=== PATIENT | female | born 1945 | race Caucasian/White ===

== ENCOUNTER 2016-09-25 09:36 | Observation (INO) | payer MEDICARE, BC ==
[2016-09-18 10:03] LABS: HEMATOCRIT 33.8 % (36.0-47.0); HEMOGLOBIN 11.5 g/dL (12.0-15.5); HGB HCT DIFFERENCE 0.7; MEAN CORPUSCULAR HEMOGLOBIN 28.2 pg (27.0-33.4); MEAN CORPUSCULAR HGB CONC 34.2 g/dL (32.0-36.0); MEAN CORPUSCULAR VOLUME 83 fl (80-97); RED BLOOD COUNT 4.09 10^6/uL (3.72-5.28); RED CELL DISTRIBUTION WIDTH 13.3 % (11.5-14.0); WHITE BLOOD COUNT 7.6 10^3/uL (4.0-10.5)
[2016-09-18 10:30] LABS: ANION GAP 12 (5-19); BLOOD UREA NITROGEN 16 mg/dL (7-20); CALCIUM 9.9 mg/dL (8.4-10.2); CARBON DIOXIDE 25 mmol/L (22-30); CHLORIDE 104 mmol/L (98-107); CREATININE RESULT 0.72 mg/dL (0.52-1.25); GLUCOSE 86 mg/dL (75-110); POTASSIUM 4.7 mmol/L (3.6-5.0); SODIUM 141.1 mmol/L (137-145)
[~2016-09-25 09:36] MED LIST: LACTATED RINGERS 1000 ML IV PRN; LIDOCAINE 0.5% INJ-PF (5 MG/ML) 50 ML SDV SUBCUT PRN; LIDOCAINE 1%/EPINEPHRINE INJ 20 ML VIAL ONE; METHYLENE BLUE INJ/PF 10 MG/1 ML SDV ONE; MICROFIBRILLAR COLLAGEN 1 GM PACK ONE
[2016-09-25] MEDS ORDERED: ONDANSETRON HCL INJ/PF 4 MG/2 ML SDV ONE (10:08)
[2016-09-25] MEDS ORDERED: SUCCINYLCHOLINE CHLORIDE INJ 200 MG/10 ML VIAL ONE (10:08)
[2016-09-25] MEDS ORDERED: LIDOCAINE 2% INJ-PF (20 MG/ML) 10 ML AMPUL ONE (10:08)
[2016-09-25] MEDS ORDERED: METOCLOPRAMIDE HCL INJ/PF 10 MG/2 ML SDV ONE (10:08)
[2016-09-25] MEDS ORDERED: GLYCOPYRROLATE INJ 0.4 MG/2 ML VIAL ONE (10:08)
[2016-09-25] MEDS ORDERED: DEXAMETHASONE SOD PHOSPHATE INJ 4 MG/1 ML VIAL ONE (10:08)
[2016-09-25] MEDS ORDERED: FENTANYL CITRATE INJ/PF 250 MCG/5 ML AMPULE ONE (12:24)
[2016-09-25] MEDS ORDERED: FENTANYL CITRATE INJ/PF 100 MCG/2 ML AMPUL ONE (12:25)
[2016-09-25] MEDS ORDERED: MIDAZOLAM 2 MG/2 ML INJ ONE (12:25)
[2016-09-25] MEDS ORDERED: PROPOFOL INJ 200 MG/20 ML VIAL IV ONE (12:25)
[2016-09-25] MEDS ORDERED: HYDROMORPHONE HCL INJ/PF 2 MG/ML AMPULE ONE (12:25)
[2016-09-25] MEDS ORDERED: DEXMEDETOMIDINE INJ 80 MCG/20 ML VIAL IV ONE (12:26)
[2016-09-25] MEDS ORDERED: ACETAMINOPHEN 100 ML IV ONE (12:26)
[2016-09-25] MEDS: CIPROFLOXACIN 400 MG/D5W RTU 400 MG/200 ML RTUPB IV PRN ×3 (13:00→23:16)
[2016-09-25] MEDS ORDERED: EPHEDRINE SULFATE INJ 50 MG/1 ML AMPULE ONE (14:23)
[2016-09-25] MEDS ORDERED: FENTANYL CITRATE INJ/PF 100 MCG/2 ML AMPUL IV PRN ×3 (15:48)
[2016-09-25] MEDS ORDERED: MEPERIDINE HCL/PF INJ 25 MG/1 ML DISP.SYRIN IV PRN (15:48)
[2016-09-25] MEDS ORDERED: OXYCODONE-ACETAMINOPHEN 5-325 MG TABLET PO PRN ×3 (15:48→16:53)
[2016-09-25] MEDS ORDERED: PROMETHAZINE HCL INJ 25 MG/1 ML VIAL IV PRN ×2 (15:48)
[2016-09-25] MEDS ORDERED: DIPHENHYDRAMINE HCL 50 MG/ML VIAL IV PRN (15:48)
[2016-09-25] MEDS ORDERED: MORPHINE SULFATE 10 MG/ML INJ IV PRN (15:48)
--- NOTE | 2016-09-25 16:49 | Operative Report ---
Operative Report DATE OF SURGERY: 09/25/16 PREOPERATIVE DIAGNOSIS: 1. Locally advanced right breast carcinoma status post right mastectomy, sentinel node biopsy POSTOPERATIVE DIAGNOSIS: Same OPERATION: 1. Focused ultrasound left neck. 2. Left subclavian [id number] catheter placement, dual-lumen with interpretation of intraoperative fluoroscopy. 3. Completion right axillary dissection with drain placement. 4. Left mastectomy with drain placement SURGEON: OTILIO SIDDIQUI INFORMATICIST: SOHAIL CALIXTO ANESTHESIA: GA TISSUE REMOVED OR ALTERED: 1. Right axillary contents, complete. 2. Left breast COMPLICATIONS: None ESTIMATED BLOOD LOSS: 50 mL INTRAOPERATIVE FINDINGS: See below PROCEDURE: The patient was seen in the preoperative holding area with a plan for right complete axillary dissection, left mastectomy, and left subclavian Infuse-a- Port placement were all discussed. The patient taken the operating room where she underwent general anesthesia. She was left in supine position, arms tucked to her side. The plan was to perform the Betbtt-o-Bdqs catheter in the left side first. Therefore the neck and chest wall bilaterally was prepped and draped sterile fashion. Surgical plan and surgical timeout were conducted. We approached the left subclavian area first. The area was scanned with the variable frequency linear transducer. Subclavian vein felt to be suitable for cannulation. Skin anesthetized 1% lidocaine with epinephrine. Using the Seldinger technique, the left subclavian vein was cannulated wire threaded into position. Fluoroscopy confirmed appropriate placement of the wire we then opened up the initial incision with knife blade, developed a subcutaneous pocket large enough to accommodate a dual-chamber port. The catheter was then trimmed to the appropriate length, attached to the port. Then the dilator and introducer sheath were threaded into the left subclavian vein over the guidewire. Wire and dilator removed leaving the catheter threaded into the strip away sheath. The sheath was removed and the catheter was found to be in good position with the tip in the superior vena cava. It was no kinking of the catheter. The wound was closed with 3-0 Vicryl suture, benzoin and Steri- Strips. We now turned our attention to the second part of the operation. Drapes removed , both arms abducted and the entire chest and axilla prepped and draped in sterile fashion. Repeated the timeout and reviewed the plan for the completion right axillary dissection. The patient previously undergone right mastectomy with sentinel node biopsy of the right axilla approximately 1 month ago. The existing mastectomy scar was reopened laterally and then extended approximate 6 cm towards the apex of the axilla. We got into a seroma and this was evacuated. There was no evidence of infection. There was evidence of scar tissue from the previous surgery making the dissection somewhat tedious and challenging. Nonetheless we were able to develop superior and inferior skin flaps. We then introduced Bookwalter retractor system continued our dissection. We performed a complete axillary dissection involving of level II lymph nodes behind the right pectoralis minor muscle. The level of dissection was taken from the superior aspect of the axillary vein, which was bifurcated, all the way down to the serratus musculature inferiorly. All axillary contents were swept from the lateral chest wall extending from level II lymph nodes all the way down to the floor of the axilla, then laterally to the border of the latissimus dorsi muscle. There was moderate amount of scar tissue in the lower axilla. The intercostal brachial nerve was sacrificed during the dissection. Note throughout the dissection the long thoracic nerve, and the thoracodorsal nerve, and the corresponding artery and vein were preserved throughout the dissection. This was a very thorough dissection with excellent visualization and exposure. Axillary contents were removed in a segmented fashion right axillary contents. The stasis was felt to be satisfactory. Placement inferior skin flap, wounds closed with running 2-0 and interrupted 2-0 Vicryl sutures. We now approached the third portion of the operation which was the left simple mastectomy. Dr. Puga of previously marked the skin markings for the elliptical excision. The incision was made with a 10 blade. Superior and inferior skin flaps were raised, and the right breast was removed from the sternal tissue down to the pectoralis fascia, up to the subclavicular area, sparing the exposure to the recently placed port, and down to the serratus musculature inferiorly. The breast was taken off in 1 mass and sent to pathology as left. It was not marked. A large drain was placed in the inferior skin flap, wound closed again with multiple interrupted 2-0 running and interrupted Vicryl sutures. Sponge and needle counts are correct. All wounds closed with Dermabond glue, and Steri-Strips applied as needed. Drains were secured to the skin with 2-0 silk suture. Patient on procedure well, extubated and taken recovery in stable condition. The physician web press operator assistant, Ms. Calixto, provided assistance during this case by: Assisting with port insertion, retracting tissue, instillation of local anesthesia and closure of skin incisions.
[2016-09-25] MEDS ORDERED: ONDANSETRON HCL INJ/PF 4 MG/2 ML SDV IV PRN (16:53)
[2016-09-26] MEDS ORDERED: BISMUTH SUBSALICYLATE 262 MG TAB.CHEW PO PRN (08:31)
[2016-09-26] MEDS ORDERED: LANSOPRAZOLE 30 MG TAB.RAP.DR PO ONE ×2 (08:45)
[2016-09-26] MEDS ORDERED: LANSOPRAZOLE 30 MG TAB.RAP.DR PO SCH (11:00)
[2016-09-26 11:44] VITALS: BP 133/60
--- NOTE | 2016-09-26 12:28 | DISCHARGE SUMMARY E ---
Discharge Summary NAME: KRYSTAL TREJO : 1945 AGE: 71Y ADMITTED: 09/25/2016 DISCHARGED: 09/26/2016 SUMMARY OF HOSPITALIZATION: The patient is a 71-year-old white female with a known history of right breast carcinoma, status post right mastectomy, sentinel node biopsy. She has regionally advanced disease with 6/7 sentinel lymph nodes positive for metastatic disease. She is now brought to [facility] for completion of right axillary dissection, Infusaport placement, and left mastectomy. The patient was brought to ambulatory surgery, and underwent right completion axillary dissection, drain placement on the right side, left subclavian Infusaport placement, and left simple mastectomy with drain. Postoperatively the patient did well, had no complications. She was discharged home on the first postoperative day. FINAL DIAGNOSIS: Locally advanced right breast carcinoma, status post completion of right completion axillary dissection, left subclavian port placement, and left simple mastectomy. DISPOSITION: The patient will be discharged home in the care of family. Followup with Dr. Puga in approximately 1 week. Resume preoperative medications and activity. Prescription for Percocet provided. DICTATING PHYSICIAN: OTILIO PUGA M.D. [id number] PHY#: [id number] ID: [id number] JOB#: [id number] ACCT: [id number] cc:OTILIO PUGA M.D. >
== END 2016-09-26 13:00 | disposition home or self-care (01) ==
LOC: OROUT 09:36 → 4W 16:51
PROVIDERS: ADMIT Surgery; ATTEND Surgery
PROC: 07T50ZZ Resection of Right Axillary Lymphatic, Open Approach (ICD-10-PCS; 2016-09-25)
PROC: [UNRECOGNIZED PROCEDURE] (2016-09-25)
PROC: 05H633Z Insertion of Infusion Device into Left Subclavian Vein, Percutaneous Approach (ICD-10-PCS; principal; 2016-09-25 11:30)
PROC: 0HTU0ZZ Resection of Left Breast, Open Approach (ICD-10-PCS; 2016-09-25 11:30)
DX: C50.911 Malignant neoplasm of unspecified site of right female breast (principal); Z17.0 Estrogen receptor positive status [ER+]; N60.12 Diffuse cystic mastopathy of left breast; D24.2 Benign neoplasm of left breast; N60.42 Mammary duct ectasia of left breast; R92.0 Mammographic microcalcification found on diagnostic imaging of breast; L76.34 Postprocedural seroma of skin and subcutaneous tissue following other procedure; Y83.8 Other surgical procedures as the cause of abnormal reaction of the patient, or of later complication, without mention of misadventure at the time of the procedure; Y82.8 Other medical devices associated with adverse incidents; R35.0 Frequency of micturition; I10 Essential (primary) hypertension; F17.210 Nicotine dependence, cigarettes, uncomplicated; K21.9 Gastro-esophageal reflux disease without esophagitis; Z80.3 Family history of malignant neoplasm of breast; Z79.899 Other long term (current) drug therapy; Z88.0 Allergy status to penicillin
CPT/HCPCS: 36415; 85027; 80048; 88307 ×2; 71010; 77001; 36561; 19303; 38525; 10140; G0378; C1788; C1752; J2250; A9270; J1100; J3490 ×4; J3010; J2765; J1170; J0330; J2405; J2704; J0744; J1642; J0131; 404; Q9968

== ENCOUNTER → 2016-10-18 | Outpatient (CLI) | payer MEDICARE, BC | LOC: RAD 10:13 | PROVIDERS: ATTEND Internal Medicine | DX: Z08 Encounter for follow-up examination after completed treatment for malignant neoplasm (principal); C50.011 Malignant neoplasm of nipple and areola, right female breast; Z51.11 Encounter for antineoplastic chemotherapy | CPT/HCPCS: 78473; A9560; Q9969 ==

== ENCOUNTER → 2017-06-26 | Outpatient (CLI) | payer MEDICARE, BC ==
--- NOTE | 2017-06-26 10:45 | WOMENS IMAGING REPORT ---
EXAM DESCRIPTION: BONE DENSITY HIP/SPINE COMPLETED DATE/TIME: 06/26/2017 10:37 am REASON FOR STUDY: OSTEOPOROSIS M81.0 AGE-RELATED OSTEOPOROSIS W/O CURRENT PATHOLOGICAL FRAC COMPARISON: None. TECHNIQUE: Dual-Energy X-ray Absorptiometry (DEXA) of the AP Spine and Hip. LIMITATIONS: None. FINDINGS: LUMBAR SPINE: The bone mineral density (BMD) measured from L1-L4 in the AP projection correlates with a T-score of -2.0, which is osteopenia as defined by the World Health Organization. HIP: The bone mineral density (BMD) measured in the left hip correlates with a T-score of -1.5 in the femo ral neck, which is osteopenia as defined by the World Health Organization. IMPRESSION: 1. LUMBAR SPINE: OSTEOPENIA. 2. HIP: OSTEOPENIA. COMMENT: The 10 year risk of major osteoporotic fracture is 9.6%. The 10 year risk of hip fracture is 1.3%. The World Health Organization defines low BMD as follows: T-score: Normal: Greater than -1.0 Osteopenia: Between -1.0 and -2.5 Osteoporosis: Less than -2.5 without fractures Established osteoporosis: Less than -2.5 with fractures In general, you may wish to consider: Diagnosis Treatment Follow-up DEXA Normal BMD Prevention 2-3 years Osteopenia Prevention/Therapy 1-2 years Osteoporosis Therapy Yearly TECHNICAL DOCUMENTATION: JOB ID: [id number]- All Rights Reserved
== END ==
LOC: WI 10:17
PROVIDERS: ATTEND Internal Medicine
DX: M81.0 Age-related osteoporosis without current pathological fracture (principal)
CPT/HCPCS: 77080

== ENCOUNTER 2017-09-15 14:13 | Inpatient (IN) | payer MEDICARE, BC ==
[2017-09-15 15:32] LABS: HEMATOCRIT 27.5 % (36.0-47.0); HEMOGLOBIN 8.9 g/dL (12.0-15.5); MEAN CORPUSCULAR HEMOGLOBIN 25.2 pg (27.0-33.4); MEAN CORPUSCULAR HGB CONC 32.4 g/dL (32.0-36.0); MEAN CORPUSCULAR VOLUME 78 fl (80-97); PLATELET COUNT 304 10^3/uL (150-450); RED BLOOD COUNT 3.54 10^6/uL (3.72-5.28); RED CELL DISTRIBUTION WIDTH 17.7 % (11.5-14.0); WHITE BLOOD COUNT 12.1 10^3/uL (4.0-10.5)
[2017-09-15 15:49] LABS: ALANINE AMINOTRANSFERASE 35 U/L (9-52); ALBUMIN 3.5 g/dL (3.5-5.0); ALKALINE PHOSPHATASE 91 U/L (38-126); ANION GAP 11 (5-19); ASPARTATE AMINO TRANSFERASE 27 U/L (14-36); BILIRUBIN,DIRECT 0.1 mg/dL (0.0-0.4); BILIRUBIN,TOTAL 0.1 mg/dL (0.2-1.3); BLOOD UREA NITROGEN 9 mg/dL (7-20); CALCIUM 9.2 mg/dL (8.4-10.2); CARBON DIOXIDE 25 mmol/L (22-30); CHLORIDE 102 mmol/L (98-107); GLUCOSE 77 mg/dL (75-110); SODIUM 138.1 mmol/L (137-145); TOTAL PROTEIN 6.3 g/dL (6.3-8.2)
[2017-09-15] MEDS: ACETAMINOPHEN 325 MG TABLET PO PRN (16:42)
[2017-09-15] MEDS: CIPROFLOXACIN 400 MG/D5W RTU 400 MG/200 ML RTUPB IV SCH (16:43)
[2017-09-15] MEDS ORDERED: LIDOCAINE 0.5% INJ-PF (5 MG/ML) 50 ML SDV ONE (18:50)
[2017-09-15] MEDS ORDERED: BUPIVACAINE HCL 0.25 % INJ/PF (2.5 MG/1 ML) 30 ML VIAL ONE (18:50)
[2017-09-15] MEDS ORDERED: FENTANYL CITRATE INJ/PF 100 MCG/2 ML AMPUL ONE (19:01)
[2017-09-15] MEDS ORDERED: MIDAZOLAM 2 MG/2 ML INJ ONE (19:01)
[2017-09-15] MEDS ORDERED: PROPOFOL INJ 200 MG/20 ML VIAL IV ONE (19:01)
[2017-09-15] MEDS ORDERED: ACETAMINOPHEN 100 ML IV ONE (19:01)
--- NOTE | 2017-09-15 19:38 | OPERATIVE REPORT E ---
Operative Report NAME: KRYSTAL TREJO : 1945 AGE: 72Y DATE OF SURGERY: 09/15/2017 ROOM: 527 PREOPERATIVE DIAGNOSIS: Status post mastectomy with right chest wall infection. POSTOPERATIVE DIAGNOSIS: Status post mastectomy with right chest wall infection with residual abscess, right chest wall. OPERATIONS: Focused ultrasound of the right chest wall. SURGEON: OTILIO OCONNOR M.D. ANESTHESIA: None. DRAINS: None. TISSUE REMOVED: None. COMPLICATIONS: None. SUMMARY OF PROCEDURE: The patient was placed in the supine position on the 5th floor of [facility]. The right chest wall exposed. Mastectomy scar appreciated. Over the lateral aspect of the mastectomy scar was an area of discoloration at the site of recent drainage. The superior skin flap on the lateral aspect of the mastectomy scar was erythematous and tender and swollen. There was limited range of motion of patient's right upper extremity. Accuzyme gel was placed on the chest wall and the chest wall scanned with a variable frequency linear transducer. Findings were significant for a mixed hypoechoic area just under the skin at the point of maximum swelling and tenderness consistent with undrained fluid which tracked medially several centimeters. IMPRESSION: Undrained pus, right chest wall, status post mastectomy 1 year ago. RECOMMENDATIONS: 1. The patient should undergo proper debridement and drainage, with packing or drain placement, preferably in the operating room under controlled conditions for optimal drainage. 2. I discussed this with the patient as well as an explanation of the risks, benefits, and alternatives. I believe she understands and agrees to proceed. DICTATING PHYSICIAN: OTILIO OCONNOR M.D. [id number] PHY#: [id number] ID: [id number] JOB#: [id number] ACCT: [id number] cc:OTILIO OCONNOR M.D. >
[2017-09-15] MEDS ORDERED: ONDANSETRON HCL INJ/PF 4 MG/2 ML SDV IV PRN (19:40)
[2017-09-15] MEDS ORDERED: OXYCODONE-ACETAMINOPHEN 5-325 MG TABLET PO PRN (19:40)
[2017-09-15] MEDS ORDERED: MORPHINE SULFATE 10 MG/ML INJ IV PRN (19:40)
[2017-09-15] MEDS ORDERED: PROMETHAZINE HCL INJ 25 MG/1 ML VIAL IV PRN (19:44)
[2017-09-15] MEDS ORDERED: FENTANYL CITRATE INJ/PF 100 MCG/2 ML AMPUL IV PRN ×3 (19:44)
[2017-09-15] MEDS ORDERED: DIPHENHYDRAMINE HCL 50 MG/ML VIAL IV PRN (19:44)
[2017-09-15] MEDS ORDERED: MEPERIDINE HCL/PF INJ 25 MG/1 ML DISP.SYRIN IV PRN (19:44)
--- NOTE | 2017-09-15 19:45 | Operative Report ---
Operative Report DATE OF SURGERY: 09/15/17 PREOPERATIVE DIAGNOSIS: 1. History of right breast carcinoma, status post right mastectomy, sentinel node biopsy, radiation and adjuvant chemotherapy. 2. 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 Surgical plan surgical timeout conducted Skin was anesthetized with the 1% lidocaine at the site of recent drainage over the lateral aspect of the mastectomy scar. An incision was made over the necrotic area of skin, and this area open for a distance of approximately 4 cm. We evacuated a moderate amount of purulent discharge which was non-foul- smelling. Wound culture sent for Gram stain and sensitivity using my index finger, broke up loculations above and below the lateral aspect of the pectoralis major muscle. The infection appeared to be chronic, likely secondary to postoperative seroma, forestalled by radiation therapy. All loculations were broken up underneath the superior skin flap extending approximately 6-7 cm in all directions medially and laterally. There was no significant extension inferiorly. Wound irrigated with saline, trotter of cavity irrigated and some viable fibrinous tissue debrided with a knife and pickups. Total grams of tissue were disposed of. Wound irrigated again and packed with a half of Curlex packing. Hemostasis was excellent. Patient tolerated procedure well. She was taken to recovery room.
[2017-09-16] MEDS: ACETAMINOPHEN 325 MG TABLET PO PRN (00:31)
[2017-09-16] MEDS: NORMAL SALINE 1000 ML 1,000 ML IV PRN ×4 (00:38→23:36)
[2017-09-16] MEDS: CIPROFLOXACIN 400 MG/D5W RTU 400 MG/200 ML RTUPB IV SCH ×2 (05:25→17:34)
[2017-09-16] MEDS ORDERED: DENOSUMAB 60 MG SQ SCH (06:15)
[2017-09-16] MEDS: LANSOPRAZOLE 30 MG TAB.RAP.DR PO SCH (06:41)
[2017-09-16] MEDS: CHOLECALCIFEROL (D3) 400 UNIT TABLET PO SCH (09:31)
[2017-09-16] MEDS: CALCIUM CARBONATE 500 MG TABLET PO SCH (09:31)
[2017-09-16] MEDS: ESCITALOPRAM OXALATE 10 MG TABLET PO SCH (09:31)
[2017-09-16] MEDS: MULTIVITAMIN TABLET PO SCH (09:31)
[2017-09-16] MEDS ORDERED: LANSOPRAZOLE 30 MG TAB.RAP.DR PO SCH (10:00)
[2017-09-16] MEDS ORDERED: (PENDING PHARMACY ID) (Calcium Carbonate/Vitamin D3 [Calcium 600 + Vit D 400 Tablet] 1 TAB PO SCH (10:00)
[2017-09-16] MEDS ORDERED: AMLODIPINE BESYLATE 2.5 MG TABLET PO ONE (16:00)
--- NOTE | 2017-09-16 16:16 | PDOC PROGRESS REPORT ---
Subjective Progress Note for:: 09/16/17 Subjective:: Pains right chest operative site Reason For Visit: RIGHT CHEST WALL INFECTION Physical Exam Vital Signs: Temp Pulse Resp BP Pulse Ox 97.9 F 78 16 141/88 H 100 09/16/17 14:41 09/16/17 14:41 09/16/17 14:41 09/16/17 14:41 09/16/17 14:41 Intake & Output 09/15/17 09/16/17 09/17/17 06:59 06:59 06:59 Intake Total 550 Output Total 15 Balance 535 Weight 76.204 kg 79 kg Exam: Initial packing removed and replaced with a roll of quarter inch iodoform gauze into the cavity about 7 cm superiorly, medially, and laterally. No drainge noted. However, since this is a chronic wound, may benefit from a wound VAC. Big question is the deep tunnelling. This may need to be unroof. Will D/W pt and about placing a wound VAC in the OR tomorrow with unroofing. Results Laboratory Results: 09/15/17 15:19 09/15/17 15:19 Assessment & Plan - Diagnosis (1) Abscess rt mastectomy site Is this a current diagnosis for this admission?: Yes - Time Time Spent with patient: 15-24 minutes - Inpatient Certification Medical Necessity: Need for Pain Control, Need for IV Antibiotics, Need for Surgery, Risk of Complication if Not Cared For in Hospital - Plan Summary Plan Summary: Wound repacked with iodoform gauze. May need wound VAC but needs unroofing of abscess cavity. Will D/W pt and Continue IV antibiotic tx
[2017-09-16] MEDS: LETROZOLE 2.5 MG TABLET PO SCH (17:35)
[2017-09-16] MEDS ORDERED: DEXTROSE 50%-WATER 25 GM/50 ML DISP.SYRIN IV PRN ×2 (18:46)
[2017-09-16] MEDS ORDERED: DEXTROSE 40% GEL 15 GM TUBE PO PRN ×2 (18:46)
[2017-09-16] MEDS ORDERED: GLUCAGON,HUMAN RECOMB 1 MG INJ SUBCUT PRN (18:46)
[2017-09-16] MEDS: ATORVASTATIN CALCIUM 10 MG TABLET PO SCH (21:22)
[2017-09-17] MEDS: CIPROFLOXACIN 400 MG/D5W RTU 400 MG/200 ML RTUPB IV SCH ×2 (05:39→18:13)
[2017-09-17] MEDS: LANSOPRAZOLE 30 MG TAB.RAP.DR PO SCH (05:40)
[2017-09-17] MEDS: NORMAL SALINE 1000 ML 1,000 ML IV PRN ×2 (07:01→23:35)
[2017-09-17] MEDS: KETOROLAC TROMETHAMINE INJ/PF 30 MG/1 ML SDV IV PRN ×2 (08:27→18:13)
[2017-09-17] MEDS: AMLODIPINE BESYLATE 2.5 MG TABLET PO SCH (08:28)
[2017-09-17] MEDS ORDERED: LIDOCAINE 2% INJ-PF (20 MG/ML) 10 ML AMPUL ONE (11:37)
[2017-09-17] MEDS ORDERED: LIDOCAINE 0.5% INJ-PF (5 MG/ML) 50 ML SDV ONE (11:43)
[2017-09-17] MEDS ORDERED: MIDAZOLAM 2 MG/2 ML INJ ONE ×2 (11:58→12:01)
[2017-09-17] MEDS ORDERED: FENTANYL CITRATE INJ/PF 100 MCG/2 ML AMPUL ONE ×2 (11:58)
[2017-09-17] MEDS ORDERED: PROPOFOL INJ 200 MG/20 ML VIAL IV ONE ×2 (11:59→12:01)
[2017-09-17] MEDS ORDERED: PROMETHAZINE HCL INJ 25 MG/1 ML VIAL IV PRN ×2 (12:39)
[2017-09-17] MEDS ORDERED: OXYCODONE-ACETAMINOPHEN 5-325 MG TABLET PO PRN ×3 (12:39→12:51)
[2017-09-17] MEDS ORDERED: FENTANYL CITRATE INJ/PF 100 MCG/2 ML AMPUL IV PRN ×3 (12:39)
[2017-09-17] MEDS ORDERED: DIPHENHYDRAMINE HCL 50 MG/ML VIAL IV PRN (12:39)
[2017-09-17] MEDS ORDERED: MORPHINE SULFATE 10 MG/ML INJ IV PRN (12:39)
--- NOTE | 2017-09-17 13:28 | OPERATIVE REPORT E ---
Operative Report NAME: KRYSTAL TREJO : 1945 AGE: 72Y DATE OF SURGERY: 09/15/2017 ROOM: 207 PREOPERATIVE DIAGNOSIS: Abscess cavity right anterior chest wall post mastectomy. POSTOPERATIVE DIAGNOSIS: Abscess cavity right anterior chest wall post mastectomy. PROCEDURE: Incision and drainage of abscess cavity about 9 cm long. SURGEON: NICOLÁS MIRZA M.D. ANESTHESIA: Local MAC. INDICATION: This is a 72-year-old female who developed an abscess post mastectomy. This was initially drained by Dr. Puga 2 days ago. However, patient continued to have a large abscess cavity. Decision was made after discussion to patient and her as far as optimizing the healing process with the use of a wound VAC and requiring incising or unroofing the cavity. They both agreed. DESCRIPTION OF PROCEDURE: After adequate IV sedation, patient was placed in supine position with the right arm extended. The right chest was then prepped and draped in the usual sterile fashion. Appropriate timeout was called. Next, local anesthesia infiltrated along the tunnel from the initial I and D site towards the medial aspect at about 75 degree angle. A 9 cm long incision was made which opened the cavity completely. The skin bleeders were coagulated with cautery. It was then completely divided through the subcu with the use of cautery. Following this, the cavity was subsequently pulse lavaged with at least 2.5 L of saline. No evidence of abscess or discharge was noted. After adequate hemostasis noted and after the lavage, a small foam for the wound VAC was placed into the wound. A transparent adhesive dressing placed over the wound creating a good seal. Next, a small opening over the mid part of the foam was done with scissors and suction connected to the opening in the foam. The suction subsequently connected to the wound VAC set at -125 mmHg pressure. The suctioned foam into the cavity nicely. The inferior part of the wound is somewhat just above the foam because the defect was quite deep up to a distance about 4 cm. The defect roughly measured about 10 cm x 8 cm wide x 4 cm deep. Patient tolerated the procedure well. Patient brought to the recovery room in satisfactory condition. Needle, instrument, and sponge count are all correct, and estimated blood loss about 5 mL. DICTATING PHYSICIAN: NICOLÁS MIRZA M.D. [id number] PHY#: [id number] ID: [id number] JOB#: [id number] ACCT: [id number] cc:NICOLÁS MIRZA M.D. > MEL
--- NOTE | 2017-09-17 13:34 | EKG REPORT ---
SEVERITY:- ABNORMAL ECG - SINUS RHYTHM FIRST DEGREE AV BLOCK : Confirmed by: Krish Rodriguez MD 17-Sep-2017 13:33:58
[2017-09-17] MEDS: CHOLECALCIFEROL (D3) 400 UNIT TABLET PO SCH (14:30)
[2017-09-17] MEDS: MULTIVITAMIN TABLET PO SCH (14:30)
[2017-09-17] MEDS: CALCIUM CARBONATE 500 MG TABLET PO SCH (14:31)
[2017-09-17] MEDS: ESCITALOPRAM OXALATE 10 MG TABLET PO SCH (14:31)
[2017-09-17] MEDS: LETROZOLE 2.5 MG TABLET PO SCH (18:12)
[2017-09-17] MEDS: ATORVASTATIN CALCIUM 10 MG TABLET PO SCH (22:43)
[2017-09-18] MEDS: KETOROLAC TROMETHAMINE INJ/PF 30 MG/1 ML SDV IV PRN ×3 (00:02→13:29)
[2017-09-18] MEDS: NORMAL SALINE 1000 ML 1,000 ML IV PRN (06:21)
[2017-09-18] MEDS: LANSOPRAZOLE 30 MG TAB.RAP.DR PO SCH (06:21)
[2017-09-18] MEDS: CIPROFLOXACIN 400 MG/D5W RTU 400 MG/200 ML RTUPB IV SCH (06:21)
[2017-09-18] MEDS: CALCIUM CARBONATE 500 MG TABLET PO SCH (09:24)
[2017-09-18] MEDS: ESCITALOPRAM OXALATE 10 MG TABLET PO SCH (09:24)
[2017-09-18] MEDS: CHOLECALCIFEROL (D3) 400 UNIT TABLET PO SCH (09:29)
[2017-09-18] MEDS: AMLODIPINE BESYLATE 2.5 MG TABLET PO SCH (09:31)
--- NOTE | 2017-09-18 10:09 | PDOC PROGRESS REPORT ---
Subjective Progress Note for:: 09/18/17 Subjective:: Feels well. Minimal pain at wound. Reason For Visit: CUTANEOUS ABSCESS OF CHEST WALL Physical Exam Vital Signs: Temp Pulse Resp BP Pulse Ox 98.5 F 81 16 135/68 H 93 09/18/17 08:03 09/18/17 08:03 09/18/17 08:03 09/18/17 08:03 09/18/17 08:03 Intake & Output 09/17/17 09/18/17 09/19/17 06:59 06:59 06:59 Intake Total 3450 5060 Output Total 3060 Balance 3450 2000 Weight 79.6 kg 82.6 kg General appearance: PRESENT: no acute distress, cooperative Respiratory exam: PRESENT: clear to auscultation hayde, other - Wound with wound VAC in place. Minimal surrounding erythema. Cardiovascular exam: PRESENT: RRR Results Laboratory Results: 09/15/17 15:19 09/15/17 15:19 09/15/17 19:23 Chest - Right Side Gram Stain - Final 09/15/17 19:23 Chest - Right Side Wound Culture - Final Staphylococcus Aureus No Anaerobic Organisms 09/15/17 15:30 Chest - Blister Gram Stain - Final 09/15/17 15:30 Chest - Blister Wound Culture - Final Staphylococcus Aureus Skin Ilana Assessment & Plan - Diagnosis (1) Abscess rt mastectomy site Is this a current diagnosis for this admission?: Yes Plan: Status post debridement and wound VAC placement. Doing well. Will plan to discharge patient home with wound VAC with postoperative care at the wound care clinic.
[2017-09-18] MEDS: MULTIVITAMIN TABLET PO SCH (11:27)
[2017-09-18 14:50] VITALS: BP 124/64
[2017-09-18] MEDS: LETROZOLE 2.5 MG TABLET PO SCH (17:25)
[2017-09-18] MEDS ORDERED: CIPROFLOXACIN HCL 500 MG TABLET PO SCH (18:00)
--- NOTE | 2017-09-18 19:49 | DISCHARGE SUMMARY E ---
Discharge Summary NAME: KRYSTAL TREJO : 1945 AGE: 72Y ADMITTED: 09/17/2017 DISCHARGED: 09/18/2017 FINAL DIAGNOSIS: Right-sided mastectomy site abscess. PROCEDURES PERFORMED DURING HOSPITALIZATION: 1. Incision and debridement of right-sided mastectomy site abscess performed by Dr. Puga on 09/15/2017. 2. Incision and debridement of right-sided mastectomy site abscess performed by Dr. Correa on 09/17/2017. HOSPITAL COURSE: The patient underwent the above-mentioned procedures. The last procedure yielded excellent drainage and debridement of the mastectomy site abscess. The patient was placed on a wound VAC which she was tolerating well. Cultures grew out Staph aureus that was pansensitive. Wound VAC was arranged for home. The patient has now been discharged to home in good condition. She will follow up at the [facility] next week. She was set up for home health with wound VAC care. She may resume all of her home medications. Additional medication is Levaquin 500 mg p.o. daily for 7 days (patient is penicillin allergic). She may resume her regular diet at home. She is encouraged to stay active at home. DICTATING PHYSICIAN: AZAR POMPA M.D. [id number] PHY#: [id number] ID: [id number] JOB#: [id number] ACCT: [id number] cc:OTILIO PUGA M.D., CHRISTOPHER M.D. > MTDD
== END 2017-09-18 19:45 | disposition home health service (06) | DRG 908 ==
LOC: 5 14:13 → INTOOBSV 14:13 → 2N 09-16 05:54 → OBSVTOIN 09-17 15:30
PROVIDERS: ADMIT Surgery; ATTEND Surgery
PROC: BH4BZZZ Ultrasonography of Chest Wall (ICD-10-PCS; 2017-09-15)
PROC: 0J960ZZ Drainage of Chest Subcutaneous Tissue and Fascia, Open Approach (ICD-10-PCS; principal; 2017-09-15 19:00)
PROC: 0W980ZZ Drainage of Chest Wall, Open Approach (ICD-10-PCS; 2017-09-17)
PROC: 2W14X6Z Compression of Chest Wall using Pressure Dressing (ICD-10-PCS; 2017-09-17)
DX: L76.34 Postprocedural seroma of skin and subcutaneous tissue following other procedure (principal); L03.313 Cellulitis of chest wall; C50.919 Malignant neoplasm of unspecified site of unspecified female breast; I10 Essential (primary) hypertension; Y83.4 Other reconstructive surgery as the cause of abnormal reaction of the patient, or of later complication, without mention of misadventure at the time of the procedure; Z90.11 Acquired absence of right breast and nipple
CPT/HCPCS: 36415; 400; 700; 80053; 85027; 87070; 87075; 87077; 87186; 87205; 93005; 93010; A6266; J0131; J0744; J1885; J2250; J2270; J2405; J2704; J3010; J3490; J7030

== ENCOUNTER → 2017-09-30 | Outpatient (CLI) | payer MEDICARE, BC ==
--- NOTE | 2017-09-30 17:18 | RADIOLOGY REPORT (SQ) ---
EXAM DESCRIPTION: CHEST PA/LAT COMPLETED DATE/TIME: 09/30/2017 5:09 pm REASON FOR STUDY: PNEUMOTHORAX, UNSPECIFIED COMPARISON: 09/25/2016. EXAM PARAMETERS: NUMBER OF VIEWS: two views TECHNIQUE: Digital Frontal and Lateral radiographic views of the chest acquired. RADIATION DOSE: NA LIMITATIONS: none FINDINGS: LUNGS AND PLEURA: Vague density in the right lung apex. Lungs otherwise clear. No pleura l effusion. No pneumothorax. MEDIASTINUM AND HILAR STRUCTURES: No masses or contour abnormalities. HEART AND VASCULAR STRUCTURES: Heart normal size. No evidence for failure. BONES: No acute findings. HARDWARE: Vascular access port. Hardware in the left humerus. Surgical clips in soft tissues. OTHER: Large hiatal hernia. IMPRESSION: NO PNEUMOTHORAX. VAGUE DENSITY IN THE RIGHT LUNG APEX. THIS MAY REPRESENT EARLY INFILT RATE, FOCAL SCAR, OR UNDERLYING MASS. RECOMMEND FOLLOW-UP WITH CHEST CT. TECHNICAL DOCUMENTATION: JOB ID: [id number] [employer]- All Rights Reserved
== END ==
LOC: RAD 16:48
PROVIDERS: ATTEND Plastic Surgery
DX: J93.9 Pneumothorax, unspecified (principal)
CPT/HCPCS: 71046

== ENCOUNTER 2017-10-08 13:51 | Outpatient (CLI) | payer MEDICARE, BC ==
[~2017-10-08 13:51] MED LIST changes: +FERRIC CARBOXYMALTOSE 750 MG in NORMAL SALINE 250 ML IV PRN; -LACTATED RINGERS 1000 ML IV PRN; -LIDOCAINE 0.5% INJ-PF (5 MG/ML) 50 ML SDV SUBCUT PRN; -LIDOCAINE 1%/EPINEPHRINE INJ 20 ML VIAL ONE; -METHYLENE BLUE INJ/PF 10 MG/1 ML SDV ONE; -MICROFIBRILLAR COLLAGEN 1 GM PACK ONE; +NORMAL SALINE 250 ML IV PRN
[2017-10-08 14:20] VITALS: BP 114/59
== END 2017-10-08 15:06 | disposition home or self-care (01) ==
LOC: II 13:51 → 5TH 14:13 → II 15:06
PROVIDERS: ATTEND Internal Medicine
PROC: 3E043GC Introduction of Other Therapeutic Substance into Central Vein, Percutaneous Approach (ICD-10-PCS; principal; 2017-10-08)
DX: D50.9 Iron deficiency anemia, unspecified (principal); K90.9 Intestinal malabsorption, unspecified
CPT/HCPCS: 96367; J7050; J1439; 96365

== ENCOUNTER → 2017-10-09 | Outpatient (CLI) | payer MEDICARE, BC ==
--- NOTE | 2017-10-09 09:38 | RADIOLOGY REPORT (SQ) ---
EXAM DESCRIPTION: CT CHEST WITH; CT ABD/PELVIS WITH IV ONLY COMPLETED DATE/TIME: 10/09/2017 8:26 am; 10/09/2017 8:29 am REASON FOR STUDY: BREAST CA C50.011 MALIGNANT NEOPLASM OF NIPPLE AND AREOLA, RIGHT FEMAL Status post right mastectomy 08/27/2016. Abscess wound VAC clean out 09/17/2016. Status post chemoth erapy and radiation therapy. CONTRAST TYPE AND DOSE: contrast/concentration: Isovue 370.00 mg/ml; Total Contrast Delivered: 83.0 ml; Total Saline Delivered: 68.0 ml RENAL FUNCTION: NA. COMPARISON: 09/04/2016. TECHNIQUE: CT scan of the chest performed using helical scanning technique with dynamic intravenous contrast injection. Images reviewed with lung, soft tissue and bone windows. Reconstructed coronal a nd sagittal MPR images reviewed. All images stored on PACS. All CT scanners at this facility use dose modulation, iterative reconstruction, and/or weight based d osing when appropriate to reduce radiation dose to as low as reasonably achievable (ALARA). [facility]: Dose Right [facility]: CareDose [facility]: Dose Right [facility]: Teradose 4D [facility]: MissingLINK RADIATION DOSE: CT Rad equipment meets quality standard of care and radiation dose reduction techniq ues were employed. CTDIvol: 8.5 - 14.0 mGy. DLP: 1764 mGy-cm.. LIMITATIONS: None. FINDINGS: LUNGS AND PLEURA: Interval development of consolidation right upper lobe compatible with p neumonia. Chronic scarring right middle lobe. Changes of centrilobular emphysema. HILAR AND MEDIASTINAL STRUCTURES: No mediastinal or hilar adenopathy. HEART AND VASCULAR STRUCTURES: No aneurysm or dissection. No central pulmonary emboli. No pericardi al effusion. HARDWARE: None in the chest. UPPER ABDOMEN: Large hiatal hernia. THYROID AND OTHER SOFT TISSUES: No masses. No adenopathy. BONES: Total left humeral prosthesis in place. OTHER: Postsurgical defect right chest wall with open wound. There is a fluid collection extending p osteriorly to the axilla with surrounding inflammatory change. Surgical clips are noted in this reg ion from right axillary node dissection. The findings could represent postoperative hematoma or sero ma. It measures 6.5 cm in length x 2 cm in transverse diameter x3.5 cm in AP diameter. IMPRESSION: There is evidence of postsurgical change of the right chest wall from prior mastectomy. Open 1 noted. Posterior to this region there is evidence of a postsurgical seroma extending into th e axilla and region of axillary node dissection.. COMPARISON: None. RADIATION DOSE: CT Rad equipment meets quality standard of care and radiation dose reduction techniq ues were employed. CTDIvol: 8.5 - 14.0 mGy. DLP: 1764 mGy-cm.mGy. TECHNIQUE: CT scan of the abdomen and pelvis performed with intravenous and oral contrast using barbra francisco scanning technique with dynamic intravenous contrast injection. Images reviewed with lung, soft tissue and bone windows. Reconstructed coronal and sagittal MPR images reviewed. Delayed images for evaluation of the urinary system also acquired and evaluated. All images stored on PACS. All CT scanners at this facility use dose modulation, iterative reconstruction, and/or weight based d osing when appropriate to reduce radiation dose to as low as reasonably achievable (ALARA). [facility]: Dose Right [facility]: SureCare [facility]: Dose Right [facility]: Teradose 4D [facility]: MissingLINK FINDINGS: LIVER: Normal size. No masses. No dilated ducts. SPLEEN: Normal size. No focal lesions. PANCREAS: No masses. No significant calcifications. No adjacent inflammation or peripancreatic flui d collections. Pancreatic duct not dilated. GALLBLADDER: No identified stones by CT criteria. No inflammatory changes to suggest cholecystitis. ADRENAL GLANDS: No significant masses or asymmetry. RIGHT KIDNEY AND URETER: No solid masses. No significant calcification. No hydronephrosis or hydroure ter. LEFT KIDNEY AND URETER: No solid masses. No significant calcification. No hydronephrosis or hydrouret er. AORTA AND VESSELS: Atherosclerotic change of the abdominal aorta and iliac vessels. Atherosclerotic change at origin of celiac and superior mesenteric arteries. RETROPERITONEUM: No retroperitoneal adenopathy, hemorrhage or masses. LARGE AND SMALL BOWEL: Colonic diverticulosis. APPENDIX: Normal. ABDOMINAL WALL: Umbilical hernia containing fat. . PERITONEAL CAVITY: No free air. No free fluid. No peritoneal implants or masses. PELVIS: No mass or free fluid. Normal bladder. BONES: No significant or acute findings. OTHER: No other significant finding. IMPRESSION: Colonic diverticulosis. TECHNICAL DOCUMENTATION: JOB ID: [id number] Quality ID # [id number]: Final reports with documentation of one or more dose reduction techniques (e.g., Au tomated exposure control, adjustment of the mA and/or kV according to patient size, use of iterative reconstruction technique) 2010 [employer]- All Rights Reserved
== END ==
LOC: RAD 07:47
PROVIDERS: ATTEND Internal Medicine
DX: C50.011 Malignant neoplasm of nipple and areola, right female breast (principal); K57.30 Diverticulosis of large intestine without perforation or abscess without bleeding
CPT/HCPCS: 71260; 74177

== ENCOUNTER 2017-10-15 13:50 | Outpatient (CLI) | payer MEDICARE, BC ==
[2017-10-15 14:15] VITALS: BP 117/54
== END 2017-10-15 15:05 | disposition home or self-care (01) ==
LOC: II 13:50 → 5TH 13:54 → II 15:05
PROVIDERS: ATTEND Internal Medicine
PROC: 3E043GC Introduction of Other Therapeutic Substance into Central Vein, Percutaneous Approach (ICD-10-PCS; principal; 2017-10-15)
DX: D50.9 Iron deficiency anemia, unspecified (principal); K90.9 Intestinal malabsorption, unspecified
CPT/HCPCS: 96365; J7050; J1439

== ENCOUNTER → 2017-10-22 | Outpatient (CLI) | payer MEDICARE, BC ==
--- NOTE | 2017-10-22 13:42 | RADIOLOGY REPORT (SQ) ---
EXAM DESCRIPTION: CHEST PA/LAT COMPLETED DATE/TIME: 10/22/2017 12:21 pm REASON FOR STUDY: PNEUMOTHORAX COMPARISON: 09/30/2017 EXAM PARAMETERS: NUMBER OF VIEWS: two views TECHNIQUE: Digital Frontal and Lateral radiographic views of the chest acquired. RADIATION DOSE: NA LIMITATIONS: none FINDINGS: LUNGS AND PLEURA: No opacities, masses or pneumothorax. No pleural effusion. MEDIASTINUM AND HILAR STRUCTURES: No masses or contour abnormalities. HEART AND VASCULAR STRUCTURES: The configuration of the heart and mediastinal structures is unchanged . BONES: No acute findings. HARDWARE: Central line is unchanged in position. Orthopedic hardware is again identified at the leve l of the proximal left humerus. Surgical clips are again identified in both axillary regions. OTHER: Large hiatal hernia is again identified. IMPRESSION: No significant interval change. No acute changes. Other findings as noted above TECHNICAL DOCUMENTATION: JOB ID: [id number] [employer]- All Rights Reserved
== END ==
LOC: RAD 11:48
PROVIDERS: ATTEND Surgery
DX: J93.9 Pneumothorax, unspecified (principal)
CPT/HCPCS: 71046

== ENCOUNTER → 2017-12-24 | Outpatient (CLI) | payer MEDICARE, BC ==
--- NOTE | 2017-12-24 09:09 | RADIOLOGY REPORT (SQ) ---
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 Images reviewed with lung, soft tissue and bone windows. Reconstructed coronal and sagittal MPR images reviewed. All images st ored on PACS. All CT scanners at this facility use dose modulation, iterative reconstruction, and/or weight based d osing when appropriate to reduce radiation dose to as low as reasonably achievable (ALARA). [facility]: Dose Right [facility]: CareDose [facility]: Dose Right [facility]: Teradose 4D [facility]: Pick [employer] Student RADIATION DOSE: CT Rad equipment meets quality standard of care and radiation dose reduction techniq ues were employed. CTDIvol: 13.0 mGy. DLP: 501 mGy-cm. mGy. LIMITATIONS: No technical limitations. FINDINGS: LUNGS AND PLEURA: Right apical pleural-parenchymal scarring is present, likely post radiat ion change. Remainder of the lungs are well inflated and free of focal infiltrates. No pulmonary nodules. No pl eural effusion. HILAR AND MEDIASTINAL STRUCTURES: No identified masses or abnormal nodes. No obvious aneurysm. HEART AND VASCULAR STRUCTURES: No aneurysm. No pericardial effusion. UPPER ABDOMEN: No significant findings. Limited exam. THYROID AND OTHER SOFT TISSUES: Patient is post bilateral mastectomies. On the right side, the wound and fluid density collection over the right lower axilla/ upper lateral chest wall seen on 10/09/2017 has resolved. BONES: No significant finding. HARDWARE: Left-sided permanent central line tip superior vena cava OTHER: No other significant findings. IMPRESSION: Bilateral mastectomies. Chest wall findings along the right anterior upper chest wall/ axilla described 10/18/[address] evidence of metastatic disease in the chest TECHNICAL DOCUMENTATION: JOB ID: [id number] Quality ID # [id number]: Final reports with documentation of one or more dose reduction techniques (e.g., Au tomated exposure control, adjustment of the mA and/or kV according to patient size, use of iterative reconstruction technique) 2010 [employer]- All Rights Reserved Reading location - IP/workstation name: [email or web address]
== END ==
LOC: RAD 08:02
PROVIDERS: ATTEND Internal Medicine
DX: C50.011 Malignant neoplasm of nipple and areola, right female breast (principal)
CPT/HCPCS: 71250

== ENCOUNTER 2018-08-25 16:14 | Emergency (ER) | payer MEDICARE, BC ==
--- NOTE | 2018-08-25 17:02 | ER Document Report ---
ED Medical Screen (RME) - General Chief Complaint: Dizziness Stated Complaint: FEVER/CHILLS Time Seen by Provider: 08/25/18 16:55 Mode of Arrival: Ambulatory Information source: Patient Notes: 73-year-old female with hypertension, breast cancer (in remission) presents with fever, chills and generalized abdominal pain that started 4 hours prior to arrival. Patient states that she underwent endoscopy for a hiatal hernia this morning with Dr. Boland in [place]. Patient was told by her systems qa analyst come to the emergency department. Patient reports a fever of 101 at home. Patient did not take any medication for this. Patient did receive a flu shot. I have greeted and performed a rapid initial assessment of this patient. A comprehensive ED assessment and evaluation of the patient, analysis of test results and completion of medical decision making process we will be contacted by additional ED providers. PHYSICAL EXAMINATION: Vital signs reviewed-afebrile, tachycardic GENERAL: Appears to be uncomfortable LUNGS: No respiratory distress Musculoskeletal: Normal range of motion NEUROLOGICAL: Normal speech, normal gait. PSYCH: Normal mood, normal affect. SKIN: Warm, Dry, normal turgor, no rashes or lesions noted. TRAVEL OUTSIDE OF THE [place] IN LAST 30 DAYS: No - HPI Onset: This afternoon Onset/Duration: Sudden Quality of pain: Throbbing Severity: Mild Associated Symptoms: Chills, Fever Exacerbated by: Denies Relieved by: Denies Similar symptoms previously: No Recently seen / treated by doctor: Yes - Related Data Smoking: Non-smoker Frequency of alcohol use: None Drug Abuse: None Allergies/Adverse Reactions: Penicillins Allergy (Mild, Verified 09/25/16 09:53) Unsure of reaction Past Medical History - Past Medical History Cardiac Medical History: Reports: Hx Hypertension Denies: Hx Coronary Artery Disease, Hx Heart Attack Pulmonary Medical History: Denies: Hx Asthma, Hx Bronchitis, Hx COPD, Hx Pneumonia Neurological Medical History: Denies: Hx Cerebrovascular Accident, Hx Seizures Renal/ Medical History: Denies: Hx Peritoneal Dialysis Musculoskeltal Medical History: Reports Hx Arthritis - Immunizations Hx Diphtheria, Pertussis, Tetanus Vaccination: No History of Influenza Vaccine for 06/2017 - 11/2017 Season: Yes Influenza Administration Date for 06/2017 - 11/2017 Season: 06/08/17 Physical Exam - Vital signs Vitals: Temp Pulse Resp BP Pulse Ox 99.4 F 102 H 16 147/67 H 95 08/25/18 16:24 08/25/18 16:24 08/25/18 16:24 08/25/18 16:24 08/25/18 16:24 Course - Vital Signs Vital signs: Temp Pulse Resp BP Pulse Ox 99.4 F 102 H 16 147/67 H 95 08/25/18 16:24 08/25/18 16:24 08/25/18 16:24 08/25/18 16:24 08/25/18 16:24 Doctor's Discharge - Discharge Referrals: BINTA FUNES MD [Primary Care Provider] - Follow up as needed
[2018-08-25 17:33] LABS: ABSOLUTE LYMPHOCYTES (AUTO) 0.9 10^3/uL (0.5-4.7); ABSOLUTE MONOCYTES (AUTO) 0.6 10^3/uL (0.1-1.4); ABSOLUTE NEUT (AUTO) 13.9 10^3/uL (1.7-8.2); BASOPHILS % (AUTO) 0.3 % (0-2); EOSINOPHILS % (AUTO) 0.1 % (0-6); HEMATOCRIT 38.9 % (36.0-47.0); HEMOGLOBIN 13.3 g/dL (12.0-15.5); LYMPHOCYTES % (AUTO) 5.7 % (13-45); MEAN CORPUSCULAR HEMOGLOBIN 31.2 pg (27.0-33.4); MEAN CORPUSCULAR HGB CONC 34.1 g/dL (32.0-36.0); MEAN CORPUSCULAR VOLUME 91 fl (80-97); MONOCYTES % (AUTO) 3.7 % (3-13); PLATELET COUNT 219 10^3/uL (150-450); RED BLOOD COUNT 4.25 10^6/uL (3.72-5.28); RED CELL DISTRIBUTION WIDTH 13.2 % (11.5-14.0); SEGMENTED NEUTROPHILS % (AUTO) 90.2 % (42-78); TOTAL CELLS COUNTED % (AUTO) 100 %; WHITE BLOOD COUNT 15.4 10^3/uL (4.0-10.5)
--- NOTE | 2018-08-25 17:41 | RADIOLOGY REPORT (SQ) ---
EXAM DESCRIPTION: ACUTE ABDOMEN SERIES COMPLETED DATE/TIME: 08/25/2018 5:29 pm REASON FOR STUDY: Abdominal pain after endoscopy COMPARISON: Chest radiograph 10/22/2017 NUMBER OF VIEWS: Three views. TECHNIQUE: Frontal chest, supine abdomen and upright/decubitus abdomen radiographic images acquired. LIMITATIONS: None. FINDINGS: CHEST: Lungs clear of infiltrates. Venous access catheter. FREE AIR: None. No abnormal gas collections. BOWEL GAS PATTERN: Nonobstructive pattern. No dilated loops or air fluid levels. Large retrocardiac hiatal hernia. CALCIFICATIONS: No suspicious calcifications. HARDWARE: None in the abdomen. SOFT TISSUES: No gross mass or suggestion of organomegaly. BONES: No acute fracture. No worrisome bone lesions. OTHER: No other significant finding. IMPRESSION: Large retrocardiac hiatal hernia. No identified free air. TECHNICAL DOCUMENTATION: JOB ID: [id number] [employer] All Rights Reserved Reading location - IP/workstation name: [email or web address]
[2018-08-25 17:53] LABS: ALANINE AMINOTRANSFERASE 30 U/L (9-52); ALBUMIN 4.6 g/dL (3.5-5.0); ALKALINE PHOSPHATASE 76 U/L (38-126); ANION GAP 9 (5-19); ASPARTATE AMINO TRANSFERASE 48 U/L (14-36); BILIRUBIN,DIRECT 0.3 mg/dL (0.0-0.4); BILIRUBIN,TOTAL 0.6 mg/dL (0.2-1.3); BLOOD UREA NITROGEN 11 mg/dL (7-20); CALCIUM 9.6 mg/dL (8.4-10.2); CARBON DIOXIDE 27 mmol/L (22-30); CHLORIDE 103 mmol/L (98-107); GLUCOSE 104 mg/dL (75-110); LIPASE 61.8 U/L (23-300); POTASSIUM 4.3 mmol/L (3.6-5.0); SODIUM 138.6 mmol/L (137-145); TOTAL PROTEIN 7.4 g/dL (6.3-8.2)
[2018-08-25 18:01] LABS: APPEARANCE,URINE CLEAR; BILIRUBIN,URINE NEGATIVE (NEGATIVE); COLOR,URINE YELLOW; GLUCOSE, URINE NEGATIVE (NEGATIVE); KETONES,URINE NEGATIVE (NEGATIVE); LEUKOCYTE ESTERASE,URINE NEGATIVE (NEGATIVE); NITRITE,URINE NEGATIVE (NEGATIVE); PROTEIN,URINE NEGATIVE (NEGATIVE); URINE SPECIFIC GRAVITY 1.013; UROBILINOGEN,URINE NEGATIVE mg/dL (<2.0)
--- NOTE | 2018-08-25 18:46 | ER Document Report ---
ED General - General Chief Complaint: Dizziness Stated Complaint: FEVER/CHILLS Time Seen by Provider: 08/25/18 16:55 Mode of Arrival: Ambulatory Information source: Patient Notes: This is a 73-year-old female with a history of hypertension, large hiatal hernia , stage III breast cancer (status post chemo, status post radiation, status post bilateral mastectomy) who underwent a EGD today (Dr. Boland [phone]) and tolerated the procedure well. She states about 4 hours prior to arrival she developed fevers, chills, nausea, dizziness. Her states that she had uncontrollable shaking chills. She did states she had some abdominal discomfort on coming to the emergency room. She did not take any antipyretics. The patient's states her normal temperature runs in the 97 range TRAVEL OUTSIDE OF THE [place] IN LAST 30 DAYS: No - HPI Onset: Just prior to arrival Onset/Duration: Gradual Quality of pain: Cramping Severity: None Pain Level: Denies Associated symptoms: Fever, Weakness Exacerbated by: Denies Relieved by: Denies Similar symptoms previously: No Recently seen / treated by doctor: Yes - Related Data Allergies/Adverse Reactions: Penicillins Allergy (Mild, Verified 09/25/16 09:53) Unsure of reaction Past Medical History - General Information source: Patient - Social History Smoking Status: Never Smoker Cigarette use (# per day): No Chew tobacco use (# tins/day): No Frequency of alcohol use: None Drug Abuse: None Lives with: Family Family History: None Patient has suicidal ideation: No Patient has homicidal ideation: No - Past Medical History Cardiac Medical History: Reports: Hx Hypertension Denies: Hx Coronary Artery Disease, Hx Heart Attack Pulmonary Medical History: Denies: Hx Asthma, Hx Bronchitis, Hx COPD, Hx Pneumonia Neurological Medical History: Denies: Hx Cerebrovascular Accident, Hx Seizures Renal/ Medical History: Denies: Hx Peritoneal Dialysis Musculoskeletal Medical History: Reports Hx Arthritis Surgical Hx: Other Past Surgical History: Reports: Hx Mastectomy - Immunizations Hx Diphtheria, Pertussis, Tetanus Vaccination: No Hx Pneumococcal Vaccination: 06/10/11 Review of Systems - Review of Systems Constitutional: Chills, Fever EENT: No symptoms reported Cardiovascular: denies: Chest pain, Palpitations, Heart racing Respiratory: denies: Cough, Short of breath Gastrointestinal: See HPI Genitourinary: No symptoms reported Female Genitourinary: No symptoms reported Musculoskeletal: No symptoms reported Skin: No symptoms reported, Other - Did have IV in the left hand and there is hematoma there Hematologic/Lymphatic: No symptoms reported Neurological/Psychological: No symptoms reported Physical Exam - Vital signs Vitals: Temp Pulse Resp BP Pulse Ox 99.4 F 102 H 16 147/67 H 95 08/25/18 16:24 08/25/18 16:24 08/25/18 16:24 08/25/18 16:24 08/25/18 16:24 Notes: Physical exam: GENERAL: 73-year-old female, alert and oriented x3, no acute distress. Temperature is 99.4, pulse 101, blood pressure 147/67, respiratory rate 16, O2 sat 95% on room air. She denies any shortness of breath, chest pain. She states she feels good at this time. HEAD: Atraumatic, normocephalic. EYES: Pupils equal round and reactive to light, extraocular movements intact, sclera anicteric, conjunctiva are normal. ENT: TMs normal, nares patent, oropharynx clear without exudates. Moist mucous membranes. NECK: Normal range of motion, supple without obvious mass or JVD. LUNGS: Breath sounds clear to auscultation bilaterally and equal. No wheezes rales or rhonchi. Chest: Bilateral mastectomy. Surgical sites looks good and there is no erythema or skin changes. (Patient did have a history of a postsurgical wound infection that eventually healed on the right side). HEART: Regular rate and rhythm without murmurs, rubs or gallops. ABDOMEN: Soft, normoactive bowel sounds. No tenderness to palpation. No guarding, no rebound. No masses appreciated. EXTREMITIES: Normal range of motion, no pitting or edema. No clubbing or cyanosis. NEUROLOGICAL: Cranial nerves II through XII grossly intact. Normal speech, moving all extremities. PSYCH: Normal mood, normal affect. SKIN: She does have a hematoma over the left hand from where the IV was placed during the procedure earlier today. There is no obvious cellulitis or drainage from the area. Course - Re-evaluation Re-evalutation: 08/25/18 22:04 I discussed case with Dr. Boland. There is no source of infection at this point the patient looks very good. He did state that he has had a couple of cases where there was transient bacterial translocation after EGD and blood cultures did come back positive. Given this he recommended putting the patient on 5-7 days of oral antibiotics and he will follow-up with the patient. I did discuss the case with Dr. German and went over the labs and Dr. Boland recommendation. He felt the patient was stable to go home and he is willing to see the patient in the morning. I discussed this with the patient and her son and they are okay with the plan. We will send blood cultures and then start the patient on oral antibiotics. - Vital Signs Vital signs: Temp Pulse Resp BP Pulse Ox 98.7 F 81 18 124/59 L 94 08/25/18 22:05 08/25/18 22:05 08/25/18 22:05 08/25/18 22:05 08/25/18 22:05 - Laboratory Result Diagrams: 08/25/18 17:19 08/25/18 17:19 Laboratory results interpreted by me: 08/25/18 08/25/18 08/25/18 17:19 17:19 17:36 WBC 15.4 H Seg Neutrophils % 90.2 H Lymphocytes % 5.7 L Absolute Neutrophils 13.9 H AST 48 H Urine Blood SMALL H - Diagnostic Test Radiology reviewed: Image reviewed, Reports reviewed - CT of the abdomen shows no acute process. Chest x-ray is clear. Discharge - Discharge Clinical Impression: Febrile illness Condition: Stable Disposition: HOME, SELF-CARE Additional Instructions: Recommendations: Rest, drink plenty of fluids. As we discussed, Dr. German would like to see you in the morning. You could go to his office first thing in the morning. Additionally, I did speak to Dr. Boland who recommended the antibiotics and he will follow-up with you as well. Return to the emergency room for worsening pain, fever or any concerns or getting worse. Prescriptions: Ciprofloxacin HCl [Cipro 500 mg Tablet] 500 mg PO BID #14 tablet Metronidazole [Flagyl 500 mg Tablet] 500 mg PO TID #21 tablet Referrals: BINTA FUNES MD [Primary Care Provider] - Follow up as needed ELENA GERMAN MD [ACTIVE STAFF] - Follow up tomorrow
--- NOTE | 2018-08-25 19:40 | RADIOLOGY REPORT (SQ) ---
EXAM DESCRIPTION: CT ABD/PELVIS WITH IV ONLY COMPLETED DATE/TIME: 08/25/2018 7:29 pm REASON FOR STUDY: abd pain COMPARISON: 10/09/2017 TECHNIQUE: CT scan of the abdomen and pelvis performed using helical scanning technique with dynamic intravenous contrast injection. No oral contrast. Images reviewed with lung, soft tissue, and bone windows. Reconstructed coronal and sagittal MPR images reviewed. Delayed images for evaluation of the urinary system also acquired. All images stored on PACS. All CT scanners at this facility use dose modulation, iterative reconstruction, and/or weight based d osing when appropriate to reduce radiation dose to as low as reasonably achievable (ALARA). [facility]: Dose Right [facility]: CareDose [facility]: Dose Right [facility]: Teradose 4D [facility]: [place] CONTRAST TYPE AND DOSE: contrast/concentration: Isovue 350.00 mg/ml; Total Contrast Delivered: 85.0 ml; Total Saline Delivered: 70.0 ml RENAL FUNCTION: GFR > 60. RADIATION DOSE: CT Rad equipment meets quality standard of care and radiation dose reduction techniq ues were employed. CTDIvol: 14.6 - 17.7 mGy. DLP: 1696 mGy-cm.. LIMITATIONS: None. FINDINGS: LOWER CHEST: Large retrocardiac hiatal hernia. Similar to previous. LIVER: Normal size. No masses. No dilated ducts. SPLEEN: Normal size. No focal lesions. PANCREAS: No masses. No significant calcifications. No adjacent inflammation or peripancreatic fluid collections. Pancreatic duct not dilated. GALLBLADDER: No identified stones by CT criteria. No inflammatory changes to suggest cholecystitis. ADRENAL GLANDS: No significant masses or asymmetry. RIGHT KIDNEY AND URETER: No solid masses. No significant calcifications. No hydronephrosis or hyd roureter. LEFT KIDNEY AND URETER: No solid masses. No significant calcifications. No hydronephrosis or hydr oureter. AORTA AND VESSELS: No aneurysm. No dissection. Renal arteries, SMA, celiac without stenosis. RETROPERITONEUM: No retroperitoneal adenopathy, hemorrhage or masses. BOWEL AND PERITONEAL CAVITY: Generalize diverticulosis. No diverticulitis. APPENDIX: Normal. PELVIS: Small amount of air is seen in the bladder possibly iatrogenic. No pelvic masses. ABDOMINAL WALL: No masses. No hernias. BONES: No significant or acute findings. OTHER: No other significant finding. IMPRESSION: Large retrocardiac hiatal hernia unchanged from previous. No obstruction. Diverticulosis. TECHNICAL DOCUMENTATION: JOB ID: [id number] Quality ID # [id number]: Final reports with documentation of one or more dose reduction techniques (e.g., Au tomated exposure control, adjustment of the mA and/or kV according to patient size, use of iterative reconstruction technique) 2010 [employer]- All Rights Reserved Reading location - IP/workstation name: [email or web address]
[2018-08-25] MEDS ORDERED: METRONIDAZOLE 500 MG TABLET PO ONE (22:03)
[2018-08-25] MEDS ORDERED: CIPROFLOXACIN HCL 500 MG TABLET PO ONE (22:03)
[2018-08-25 22:13] VITALS: BP 124/59
== END 2018-08-25 22:33 | disposition home or self-care (01) ==
LOC: ER 16:14
DX: R50.9 Fever, unspecified (principal); R42 Dizziness and giddiness; I10 Essential (primary) hypertension; K44.9 Diaphragmatic hernia without obstruction or gangrene; Z88.0 Allergy status to penicillin
CPT/HCPCS: 99284; 36415; 87040; 83690; 85025; 80053; 81001; 74022; 74177; A9270 ×2

== ENCOUNTER → 2018-08-28 | Outpatient (CLI) | payer MEDICARE, BC ==
[2018-08-28 13:18] LABS: ABSOLUTE EOSINOPHILS # (AUTO) 0.1 10^3/uL (0.0-0.6); ABSOLUTE LYMPHOCYTES (AUTO) 1.4 10^3/uL (0.5-4.7); ABSOLUTE MONOCYTES (AUTO) 0.6 10^3/uL (0.1-1.4); ABSOLUTE NEUT (AUTO) 3.1 10^3/uL (1.7-8.2); BASOPHILS % (AUTO) 0.5 % (0-2); EOSINOPHILS % (AUTO) 1.8 % (0-6); HEMOGLOBIN 12.1 g/dL (12.0-15.5); MEAN CORPUSCULAR HGB CONC 33.6 g/dL (32.0-36.0); MEAN CORPUSCULAR VOLUME 92 fl (80-97); MONOCYTES % (AUTO) 11.5 % (3-13); PLATELET COUNT 210 10^3/uL (150-450); RED CELL DISTRIBUTION WIDTH 13.3 % (11.5-14.0); SEGMENTED NEUTROPHILS % (AUTO) 59.2 % (42-78); TOTAL CELLS COUNTED % (AUTO) 100 %; WHITE BLOOD COUNT 5.3 10^3/uL (4.0-10.5)
== END ==
LOC: OD 12:50
PROVIDERS: ATTEND Physician Assistant
DX: R50.9 Fever, unspecified (principal)
CPT/HCPCS: 36415; 85025

== ENCOUNTER → 2019-06-25 | Outpatient (CLI) | payer MEDICARE, BC ==
--- NOTE | 2019-06-25 13:01 | WOMENS IMAGING REPORT ---
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 TECHNIQUE: Dual-Energy X-ray Absorptiometry (DEXA) of the AP Spine and Hip. LIMITATIONS: None. FINDINGS: LUMBAR SPINE: The bone mineral density (BMD) measured from L1-L4 in the AP projection correlates with a T-score of -1.0, which is normal as defined by the World Health Organization. BMD Change vs Baseline: 13.0%. HIP: The bone mineral density (BMD) measured in the left hip correlates with a T-score of -1.1, which is o steopenia as defined by the World Health Organization. BMD Change vs Baseline: 5.8%. 10 year Fracture Risk Assessment: Major Osteoporotic Fracture: 9.4%. Hip Fracture: 1.3%. IMPRESSION: 1. LUMBAR SPINE WHO CLASSIFICATION: NORMAL. 2. HIP WHO CLASSIFICATION: OSTEOPENIA. OVERALL ASSESSMENT: WHO CLASSIFICATION: OSTEOPENIA. COMMENT: The World Health Organization defines low BMD as follows: T-score: Normal: Greater than -1.0 Osteopenia: Between -1.0 and -2.5 Osteoporosis: Less than -2.5 without fractures Established osteoporosis: Less than -2.5 with fractures In general, you may wish to consider: Diagnosis Treatment Follow-up DEXA Normal BMD Prevention 2-3 years Osteopenia Prevention/Therapy 1-2 years Osteoporosis Therapy Yearly TECHNICAL DOCUMENTATION: JOB ID: [id number] [employer]- All Rights Reserved Reading location - IP/workstation name: [email or web address]
== END ==
LOC: WI 09:46
PROVIDERS: ATTEND Internal Medicine
DX: M81.0 Age-related osteoporosis without current pathological fracture (principal)
CPT/HCPCS: 77080

== ENCOUNTER 2019-09-30 19:26 | Emergency (ER) | payer MEDICARE, BC ==
[2019-09-30] MEDS ORDERED: ACETAMINOPHEN 325 MG TABLET PO ONE (20:14)
--- NOTE | 2019-09-30 21:41 | RADIOLOGY REPORT (SQ) ---
EXAM DESCRIPTION: CT scan of the facial bones without contrast CLINICAL HISTORY: 74 years Female; FALL TECHNIQUE: High resolution axial CT of the face without contrast, with sagittal and coronal reformatted images. All CT scans at this facility use dose modulation, iterative reconstruction, and/or weight based dosing when appropriate to reduce radiation dose to as low as reasonably achievable. COMPARISON: None. FINDINGS: Bones: Facial bones are intact. Mandible is intact. Orbits and paranasal sinuses: Nasal septum is mildly deviated apex right. Daniela bullosa seen in the middle turbinates bilaterally. No air-fluid levels. Orbital trotter are intact. Globes are intact. The left lens is not clearly seen. Minimal mucosal thickening is present in the medial wall of the left maxillary sinus.. No intra or extraconal abnormality. Soft tissues: Soft tissue swelling is present anterior to the right forehead and orbit. No radiopaque foreign body in the soft tissues. The airway is patent. Visualized portion of the soft tissues of the neck are unremarkable. There is vascular calcification in the right carotid bulb. Other: No fracture is identified in the visualized portion of the cervical spine. IMPRESSION: Soft tissue injury anterior to the right orbit and forehead. No facial bone fracture. No acute process.
--- NOTE | 2019-09-30 21:43 | RADIOLOGY REPORT (SQ) ---
EXAM DESCRIPTION: CT HEAD WITHOUT IV CONTRAST COMPLETED DATE/TME: 09/30/2019 20:08 CLINICAL HISTORY: 74 years, Female, FALL COMPARISON: None. TECHNIQUE: Images stored on PACS. All CT scanners at this facility use dose modulation, iterative reconstruction, and/or weight based dosing when appropriate to reduce radiation dose to as low as reasonably achievable (ALARA). [facility]: Dose Right [facility]: CareDose [facility]: Dose Right [facility]: Teradose 4D [facility]: Asset Mapping EXAM DESCRIPTION: CLINICAL HISTORY: FALL COMPARISON: None Available TECHNIQUE: Contiguous axial CT images of the head were obtained. Coronal and sagittal reconstructions were created from the axial data. This exam was performed according to our departmental dose-optimization program, which includes automated exposure control, adjustment of the mA and/or kV according to patient size and/or use of iterative reconstruction technique. FINDINGS: Left proximal humerus hardware is present. There is right forehead soft tissue swelling. There is no evidence of acute mass, mass effect, midline shift or hemorrhage. The ventricles and extra-axial CSF spaces are unremarkable. The brain parenchyma appears normal for the patient's age. No acute abnormalities of the bones is seen. IMPRESSION: No acute intracranial abnormality.
--- NOTE | 2019-09-30 21:47 | RADIOLOGY REPORT (SQ) ---
EXAM DESCRIPTION: CT CERVICAL SPINE WITHOUT IV CONTRAST COMPLETED DATE/TME: 09/30/2019 20:08 CLINICAL HISTORY: 74 years, Female, FALL COMPARISON: None. TECHNIQUE: Images stored on PACS. All CT scanners at this facility use dose modulation, iterative reconstruction, and/or weight based dosing when appropriate to reduce radiation dose to as low as reasonably achievable (ALARA). [facility]: Dose Right [facility]: CareDose [facility]: Dose Right [facility]: Teradose 4D [facility]: [employer] LIMITATIONS: None. EXAM DESCRIPTION: CLINICAL HISTORY: FALL COMPARISON: TECHNIQUE: Contiguous axial images of the cervical spine were obtained without the administration of intravenous contrast followed by reconstruction images. This exam was performed according to our departmental dose-optimization program, which includes automated exposure control, adjustment of the mA and/or kV according to patient size and/or use of iterative reconstruction technique. FINDINGS: There is consolidation at the right upper lobe. There is no acute fracture or subluxation. Prevertebral soft tissues are within normal limits. IMPRESSION: Right upper lobe consolidation. No acute fracture or subluxation
--- NOTE | 2019-09-30 22:14 | ER Document Report ---
ED Medical Screen (RME) - General Chief Complaint: Fall Injury Stated Complaint: FALL AND FRACTURE Time Seen by Provider: 09/30/19 20:08 Primary Care Provider: ELENA GERMAN MD [Primary Care Provider] - Follow up as needed Mode of Arrival: Ambulatory Information source: Patient Notes: 74-year-old female patient presenting to the emergency department from the urgent care with concerns for possible fractures. Patient reports pain to her left foot and right wrist, states that she has positive fractures for these as outlined by the documentation from the urgent care. Most concerning to her is some pain and swelling and ecchymosis noted over the right eye. She states that the urgent care told her she may have a fractured orbit. I have greeted and performed a rapid initial assessment of this patient. A comprehensive ED assessment and evaluation of the patient, analysis of test results and completion of the medical decision making process will be conducted by additional ED providers. I have specifically instructed the patient or family members with the patient to immediately return to any nursing staff should anything change in the patient's condition or with their chief complaint. TRAVEL OUTSIDE OF THE [place] IN LAST 30 DAYS: No - Related Data Allergies/Adverse Reactions: Penicillins Allergy (Mild, Verified 09/25/16 09:53) Unsure of reaction Home Medications: NO anticoags. Lexapro 5mg Past Medical History - Past Medical History Cardiac Medical History: Reports: Hx Hypertension Denies: Hx Coronary Artery Disease, Hx Heart Attack Pulmonary Medical History: Denies: Hx Asthma, Hx Bronchitis, Hx COPD, Hx Pneumonia Neurological Medical History: Denies: Hx Cerebrovascular Accident, Hx Seizures Renal/ Medical History: Denies: Hx Peritoneal Dialysis Musculoskeltal Medical History: Reports Hx Arthritis Past Surgical History: Reports: Hx Mastectomy - Immunizations Hx Diphtheria, Pertussis, Tetanus Vaccination: No Physical Exam - Vital signs Vitals: Temp Pulse Resp BP Pulse Ox 98.1 F 81 18 135/66 H 97 09/30/19 19:34 09/30/19 19:34 09/30/19 19:34 09/30/19 19:34 09/30/19 19:34 Course - Vital Signs Vital signs: Temp Pulse Resp BP Pulse Ox 98.1 F 81 18 135/66 H 97 09/30/19 19:34 09/30/19 19:34 09/30/19 19:34 09/30/19 19:34 09/30/19 19:34 Doctor's Discharge - Discharge Referrals: ELENA GERMAN MD [Primary Care Provider] - Follow up as needed
[2019-09-30] MEDS ORDERED: KETOROLAC TROMETHAMINE INJ/PF 30 MG/1 ML SDV IM ONE (22:29)
--- NOTE | 2019-09-30 23:38 | RADIOLOGY REPORT (SQ) ---
EXAM DESCRIPTION: CLINICAL HISTORY: 74 years ,Female deformity/pain COMPARISON: None. TECHNIQUE: RIGHT wrist, Three view FINDINGS: Comminuted intra-articular fracture of the distal radial metaphysis with dorsal angulation and displacement of the distal fracture fragment. Distal ulna appears intact. IMPRESSION: Comminuted intra-articular fracture the distal radius with dorsal angulation and displacement of the distal fracture fragment
--- NOTE | 2019-09-30 23:41 | RADIOLOGY REPORT (SQ) ---
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 COMPARISON: None available HISTORY: 74-year old patient with left foot pain. FINDINGS: There is an acute fracture through the distal first metatarsal without an overt intra-articular extension. There is diffuse overlying soft tissue swelling. There are degenerative changes seen at the tarsometatarsal joints and interphalangeal joints. IMPRESSION: There is an acute fracture through the distal left first metatarsal with diffuse overlying soft tissue swelling.
--- NOTE | 2019-10-01 00:19 | ER Document Report ---
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 She has a history of pneumonia in the past. Patient completed cleaning a 6000 square foot house today and was walking down 5 brick steps when she slipped impacting her right face on the pavement fracturing her right wrist and her left foot. Patient had to call her on telephone in order for him to come help her. Patient has a prior history of a port on the left chest for chemo and radiation treatment 3 years ago. She had stage III breast cancer and has had bilateral mastectomy as well as hyperbaric oxygen treatment for abscess that developed. It was during this time she had a pneumonia as well. Patient is under [employer] service. She reports they are moving out of their house in 30 days and selling their house. TRAVEL OUTSIDE OF THE [place] IN LAST 30 DAYS: No - HPI Onset: Other - 1730 Onset/Duration: Worse Quality of pain: Achy Severity: Moderate Pain Level: 3 Associated symptoms: Productive cough, Headache Exacerbated by: Movement Relieved by: Denies Similar symptoms previously: No Recently seen / treated by doctor: No - Related Data Allergies/Adverse Reactions: Penicillins Allergy (Mild, Verified 09/25/16 09:53) Unsure of reaction Home Medications: NO anticoags. Lexapro 5mg Past Medical History - General Information source: Patient, Relative - - Social History Smoking Status: Never Smoker Cigarette use (# per day): No Chew tobacco use (# tins/day): No Smoking Education Provided: No Family History: None Patient has suicidal ideation: No Patient has homicidal ideation: No - Past Medical History Cardiac Medical History: Reports: Hx Hypertension Denies: Hx Coronary Artery Disease, Hx Heart Attack Pulmonary Medical History: Denies: Hx Asthma, Hx Bronchitis, Hx COPD, Hx Pneumonia Neurological Medical History: Denies: Hx Cerebrovascular Accident, Hx Seizures Renal/ Medical History: Denies: Hx Peritoneal Dialysis Musculoskeletal Medical History: Reports Hx Arthritis Past Surgical History: Reports: Hx Mastectomy - Immunizations Hx Diphtheria, Pertussis, Tetanus Vaccination: No Hx Pneumococcal Vaccination: 06/10/11 Review of Systems - Review of Systems Constitutional: Malaise, Weakness EENT: Eye pain, Other - Wound to right periorbital area Cardiovascular: No symptoms reported Respiratory: Cough Gastrointestinal: No symptoms reported Genitourinary: No symptoms reported Musculoskeletal: Joint pain, Joint swelling, Other - Right wrist with ecchymosis and pain as well as left foot with ecchymosis abrasion and pain to the first metatarsal dorsal and plantar Skin: Change in color, Other - Patient's as noted Hematologic/Lymphatic: No symptoms reported Neurological/Psychological: Weakness Physical Exam - Vital signs Vitals: Temp Pulse Resp BP Pulse Ox 98.1 F 81 18 135/66 H 97 09/30/19 19:34 09/30/19 19:34 09/30/19 19:34 09/30/19 19:34 09/30/19 19:34 Interpretation: Normal - General General appearance: Alert - HEENT Head: Tenderness, Other - Periorbital with ecchymosis and edema status post fall Eyes: Periorbital edema - Right side only Conjunctiva: Normal Cornea: Normal Extraocular movements intact: Yes Eyelashes: Normal Pupils: PERRL Sinus: Normal Nasal: Normal Mouth/Lips: Normal Mucous membranes: Normal - Respiratory Respiratory status: No respiratory distress Chest status: Tender Breath sounds: Normal Chest palpation: Normal - Cardiovascular Rhythm: Regular Heart sounds: Normal auscultation Murmur: No Friction rub: No Jackson's crunch: No - Abdominal Inspection: Normal Distension: No distension Bowel sounds: Normal Tenderness: Nontender - Back Back: Normal - Extremities General upper extremity: Tender, Edema, Other - Right wrist with ecchymosis and obvious deformity. X-ray reveals a fracture of the wrist. General lower extremity: Tender - With ecchymosis and abrasion to the left foot neurology first metatarsal reveals fracture Course - Vital Signs Vital signs: Temp Pulse Resp BP Pulse Ox 98.1 F 81 18 135/66 H 97 09/30/19 19:34 09/30/19 19:34 09/30/19 19:34 09/30/19 19:34 09/30/19 19:34 - Laboratory Result Diagrams: 10/01/19 00:45 10/01/19 00:45 - Diagnostic Test Radiology reviewed: Reports reviewed - EKG Interpretation by Me EKG shows normal: Sinus rhythm Rate: Normal Rhythm: Other - 1st deg block Procedures - Joint Reduction/Fracture Care Right Volar Wrist Time completed: 01:30 Consent obtained: Yes - verbal Conscious sedation: No - Fentanyl IV 2 mg Pre-procedure NV exam: Yes - Positive neurovascular intact before and after splint Fracture: Closed Post-procedure NV exam: Yes Complications: No - Patient to be seen by orthopedic tomorrow Dr Andrade Critical Care Note - Critical Care Note Total time excluding time spent on procedures (mins): 90 Comments: Case was discussed with Dr. Andrade orthopedics and he agrees with volar OCL and sling and follow-up in the office tomorrow. He was advised of the left foot fracture and patient to be placed in Ortho shoe. Patient tolerated Ortho shoe and also tolerated right volar OCL.. This was done with Nathan rvda master certified rv technician. repeat x-ray right wrist reveals continued displacement of distal radius. Advised R ICE and follow-up with orthopedics tomorrow Discharge - Discharge Clinical Impression: Fall, Wrist fracture, right, Abscess rt mastectomy site, Wrist fracture, closed, Foot fracture, left, Fracture of foot bone, left, closed Condition: Good Disposition: HOME, SELF-CARE Additional Instructions: Follow-up with Dr. Andrade orthopedictrisha tomorrow in office or his partner; return to ER as needed avoid walking and using right wrist if possible. Return to ER if neurovascular decreases in right hand or left foot. Medicines as directed and follow-up with personal doctor about your pneumonia Prescriptions: Hydrocodone Bit/Homatropine [Hycodan Syrup 5-1.5 mg/5 ml Ud Cup] 5 ml PO Q4HP PRN #120 ml PRN Reason: Levofloxacin [Levaquin 750 mg Tablet] 500 mg PO DAILY #10 tablet Referrals: ELENA GERMAN MD [Primary Care Provider] - Follow up as needed
[2019-10-01 01:02] LABS: ABSOLUTE BASOPHILS # (AUTO) 0.1 10^3/uL (0.0-0.2); ABSOLUTE LYMPHOCYTES (AUTO) 2.1 10^3/uL (0.5-4.7); ABSOLUTE MONOCYTES (AUTO) 0.9 10^3/uL (0.1-1.4); ABSOLUTE NEUT (AUTO) 6.5 10^3/uL (1.7-8.2); EOSINOPHILS % (AUTO) 0.5 % (0-6); HEMATOCRIT 36.6 % (36.0-47.0); HEMOGLOBIN 12.2 g/dL (12.0-15.5); LYMPHOCYTES % (AUTO) 21.4 % (13-45); MEAN CORPUSCULAR HGB CONC 33.3 g/dL (32.0-36.0); MEAN CORPUSCULAR VOLUME 90 fl (80-97); MONOCYTES % (AUTO) 9.6 % (3-13); PLATELET COUNT 241 10^3/uL (150-450); RED BLOOD COUNT 4.06 10^6/uL (3.72-5.28); RED CELL DISTRIBUTION WIDTH 13.5 % (11.5-14.0); SEGMENTED NEUTROPHILS % (AUTO) 67.5 % (42-78); TOTAL CELLS COUNTED % (AUTO) 100 %; WHITE BLOOD COUNT 9.6 10^3/uL (4.0-10.5)
[2019-10-01 01:16] LABS: ALKALINE PHOSPHATASE 77 U/L (38-126); ANION GAP 8 (5-19); ASPARTATE AMINO TRANSFERASE 31 U/L (14-36); BILIRUBIN,TOTAL 0.3 mg/dL (0.2-1.3); BLOOD UREA NITROGEN 10 mg/dL (7-20); CALCIUM 9.1 mg/dL (8.4-10.2); CARBON DIOXIDE 26 mmol/L (22-30); CHLORIDE 106 mmol/L (98-107); GLUCOSE 94 mg/dL (75-110); POTASSIUM 4.1 mmol/L (3.6-5.0); TOTAL PROTEIN 6.6 g/dL (6.3-8.2)
[2019-10-01] MEDS: FENTANYL CITRATE INJ/PF 100 MCG/2 ML AMPUL IV PRN ×2 (01:19→02:21)
[2019-10-01] MEDS ORDERED: LEVOFLOXACIN 750 MG/D5W RTU 750 MG/150 ML RTUPB IV ONE (01:30)
--- NOTE | 2019-10-01 01:50 | RADIOLOGY REPORT (SQ) ---
CLINICAL HISTORY: fall COMPARISON: 10/22/2017. 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 Lungs are clear without consolidation, atelectasis, mass or edema. There is no pleural effusion. There is no pneumothorax. There are no acute osseous findings. There is a large hiatal hernia. There are surgical clips in both axilla. There are postoperative changes of the left humerus. IMPRESSION: Large hiatal hernia.
[2019-10-01] MEDS ORDERED: KETOROLAC TROMETHAMINE INJ/PF 30 MG/1 ML SDV IV ONE (02:27)
[2019-10-01] MEDS ORDERED: HYDROCODONE/ACETAMINOPHEN 5-325 MG (6 TAB/ER DISP) PO PRN (02:38)
[2019-10-01] MEDS ORDERED: IBUPROFEN 600 MG TABLET PO ONE (02:39)
--- NOTE | 2019-10-01 02:43 | RADIOLOGY REPORT (SQ) ---
EXAM DESCRIPTION: XR WRIST 1-2 VIEWS COMPLETED DATE/TME: 10/01/2019 01:37 CLINICAL HISTORY: 74 years, Female, post reduction. Wrist fracture COMPARISON: September 30 NUMBER OF VIEWS: 2, 0201 hours TECHNIQUE: 2 LIMITATIONS: None. FINDINGS: Dorsally angulated and displaced Colles' fracture is again identified. The articular surface appears to be disrupted. Osteoarthritis. IMPRESSION: Fracture has been stabilized. Alignment is similar to prior copyright 2011 [employer]- All Rights Reserved
[2019-10-01 04:01] VITALS: BP 141/63
--- NOTE | 2019-10-01 07:04 | EKG REPORT ---
SEVERITY:- ABNORMAL ECG - SINUS RHYTHM FIRST DEGREE AV BLOCK : Confirmed by: Krish Rodriguez MD 01-Oct-2019 07:04:03
== END 2019-10-01 04:01 | disposition home or self-care (01) ==
LOC: ER 19:26
DX: S52.571A Other intraarticular fracture of lower end of right radius, initial encounter for closed fracture (principal); S92.312A Displaced fracture of first metatarsal bone, left foot, initial encounter for closed fracture; S00.11XA Contusion of right eyelid and periocular area, initial encounter; W10.8XXA Fall (on) (from) other stairs and steps, initial encounter; Y92.009 Unspecified place in unspecified non-institutional (private) residence as the place of occurrence of the external cause; T81.49XA Infection following a procedure, other surgical site, initial encounter; J86.9 Pyothorax without fistula; Y83.6 Removal of other organ (partial) (total) as the cause of abnormal reaction of the patient, or of later complication, without mention of misadventure at the time of the procedure; Z92.3 Personal history of irradiation; R05 Cough; R53.81 Other malaise; R53.1 Weakness; R51 Headache; I44.0 Atrioventricular block, first degree; I10 Essential (primary) hypertension; Z79.899 Other long term (current) drug therapy; Z85.3 Personal history of malignant neoplasm of breast; Z90.13 Acquired absence of bilateral breasts and nipples; Z92.21 Personal history of antineoplastic chemotherapy; Z88.0 Allergy status to penicillin
CPT/HCPCS: 93005; 99285; 96372; 96375; 96365; 96366; 36415; 87040; 83605; 85025; 80053; 71046; 73630; 73100; 73110; 70450; 70486; 72125; 93010; 25605; A9270 ×3; J3010; J1885 ×2; J1956

== ENCOUNTER 2019-10-08 09:52 | Day surgery (SDC) | payer MEDICARE, BC ==
[~2019-10-08 09:52] MED LIST changes: +CLINDAMYCIN 600 MG/D5W RTU 600 MG/50 ML RTUPB IV ONE; +CLINDAMYCIN 600 MG/D5W RTU 600 MG/50 ML RTUPB IV PRN; +DEXAMETHASONE SOD PHOSPHATE INJ 4 MG/1 ML VIAL ONE; +FENTANYL CITRATE INJ/PF 100 MCG/2 ML AMPUL ONE; -FERRIC CARBOXYMALTOSE 750 MG in NORMAL SALINE 250 ML IV PRN; +GLYCOPYRROLATE 1 MG/5 ML VIAL ONE; +MIDAZOLAM 2 MG/2 ML INJ ONE; -NORMAL SALINE 250 ML IV PRN; +ONDANSETRON HCL INJ/PF 4 MG/2 ML SDV ONE; +PROPOFOL INJ 200 MG/20 ML VIAL IV ONE; +SUCCINYLCHOLINE CHLORIDE INJ 200 MG/10 ML VIAL ONE
[2019-10-08] MEDS ORDERED: BUPIVACAINE HCL 0.5 % INJ/PF 30 ML SDV ONE (11:52)
[2019-10-08] MEDS ORDERED: BUPIVACAINE HCL 0.5 % INJ/PF 30 ML SDV INJ ONE (12:41)
[2019-10-08] MEDS ORDERED: MEPERIDINE HCL/PF INJ 25 MG/1 ML DISP.SYRIN IV PRN (12:59)
[2019-10-08] MEDS ORDERED: PROMETHAZINE HCL INJ 25 MG/1 ML VIAL IV PRN ×2 (12:59)
[2019-10-08] MEDS ORDERED: MORPHINE SULFATE 10 MG/ML INJ IV PRN ×2 (12:59→14:04)
[2019-10-08] MEDS ORDERED: DIPHENHYDRAMINE HCL 50 MG/ML VIAL IV PRN (12:59)
[2019-10-08] MEDS ORDERED: FENTANYL CITRATE INJ/PF 100 MCG/2 ML AMPUL IV PRN ×3 (12:59)
[2019-10-08] MEDS ORDERED: LIDOCAINE 2% INJ (20 MG/ML) 20 ML MDV ONE (14:04)
[2019-10-08] MEDS ORDERED: ROPIVACAINE HCL 0.5% INJ/PF (5 MG/1 ML) 30 ML SDV ONE (14:04)
[2019-10-08] MEDS ORDERED: OXYCODONE-ACETAMINOPHEN 5-325 MG TABLET PO PRN (14:04)
[2019-10-08] MEDS ORDERED: ONDANSETRON HCL INJ/PF 4 MG/2 ML SDV IV PRN (14:04)
[2019-10-08] MEDS ORDERED: LIDOCAINE 1%/EPINEPHRINE INJ 20 ML VIAL ONE (14:05)
--- NOTE | 2019-10-08 14:05 | Discharge Summary ---
Discharge Summary (SDC) - Discharge Final Diagnosis: Right distal radius fracture Date of Surgery: 10/08/19 Discharge Date: 10/08/19 Treatment or Instructions: Schedule Follow Up w/ Dr. Sean Jones @ [facility] for Surgery to be seen in 10-14 days or as scheduled [place]: [place]: [place]: Ice and elevate Vitamin C 500 mg daily for 51 days Keep splint clean/dry/intact, do not remove. If your fingers become numb please unwrap the Isaiah wrap but leave the splint in place, if the sensation does not return within 30 minutes please return to the emergency department. May begin finger range of motion attempting to make full fist. Please use ibuprofen (Motrin or Advil) 600-800 mg every 8 hours as needed for pain or fever DO NOT TAKE w/ TORADOL may use once TORADOL complete. You may also use acetaminophen (Tylenol) 1000 mg every 4-6 hours as needed for pain or fever. Please be aware that many medications contain acetaminophen, do not exceed a total of 1000 mg of acetaminophen every 6 hours. If ibuprofen and acetaminophen are not sufficient for your pain you may take the Percocet/Weston. Please be aware that the Percocet/Weston does contain Tylenol. Stool softener of choice when on pain medication. USE OF [id number] IBUPROFEN: Ibuprofen (Advil, Nuprin, Medipren, Motrin IB) is a medication for fever and pain control. In addition, it has anti- inflammatory effects which may be beneficial, especially in the treatment of injuries. It's best to take ibuprofen with food. Persons with ulcer disease or allergy to aspirin should notify their physician of this before taking ibuprofen. Ibuprofen can be given every four to six hours, for a total of four doses daily. Age Pain or fever dose Antiinflammatory dose 6-8 yr 200 mg (1 tab) 200 mg (1 tab) 9-11 yr 200 mg (1 tab) 200-400 mg (1-2 tab) 11-14 yr 200-400 mg (1-2 tab) 400 mg (2 tab) 15-adult 400 mg (2 tab) 600 mg (3 tab) ORAL NARCOTIC MEDICATION: You have been given a prescription for pain control. This medication is a narcotic. It's best taken with food, as nausea can result if taken on an empty stomach. Don't operate machinery or drive within six hours of taking this medication. Do not combine this medicine with alcohol, or with any medication which can cause sedation (such as cold tablets or sleeping pills) unless you get permission from the physician. Narcotics tend to cause constipation. If possible, drink plenty of fluids and eat a diet high in fiber and fruits. Please be aware that prescription narcotics also have the potential for abuse. People become addicted to these medications because of the general sense of wellbeing that they induce. This feeling along with a significant reduction in tension, anxiety, and aggression provides a stimulating seductive quality to these drugs. Once your pain is under control, we encourage you to discard your unused narcotics. Prescriptions: Oxycodone HCl/Acetaminophen [Percocet 7.5-325 mg Tablet] 1 - 2 tab PO Q6 #25 tab Referrals: ELENA GERMAN MD [Primary Care Provider] - Discharge Diet: As Tolerated Respiratory Treatments at Home: Deep Breathing/Coughing Discharge Activity: No Lifting Over 10 Pounds, No Lifting/Push/Pulling Adaptive Devices on Discharge: Rolling Walker Report the Following to Your Physician Immediately: Fever over 101 Degrees, Unusual Bleeding, Redness, Swelling, Warmth, Increased Soreness
--- NOTE | 2019-10-08 14:05 | Operative Report ---
Operative Report DATE OF SURGERY: 10/08/19 PREOPERATIVE DIAGNOSIS: Comminuted Intra-articular Right distal radius POSTOPERATIVE DIAGNOSIS: Same plus carpal tunnel syndrome OPERATION: 1. Open reduction fixation 2 part intra-articular right distal radius fracture. 2. Open carpal tunnel release right wrist SURGEON: CLAUDIA SLOAN ANESTHESIA: GA COMPLICATIONS: None ESTIMATED BLOOD LOSS: Minimal PROCEDURE: Indication for above procedure: 74-year-old female who sustained a fall onto her right wrist. Patient had radiographs demonstrating distal radius fracture close reduction was attempted. Patient noticed numbness and tingling of her thumb at the time of injury she did have some numbness in the index middle and ring finger which is now resolved. Patient also sustained left first metatarsal fracture as well. We discussed treatment options at that point decision was made to proceed with operative intervention. Procedure In Detail: Patient was seen and evaluated in the preoperative holding area. The RIGHT upper extremity was initialized and marked. Patient received clindamycin IV for bacterial prophylaxis. Patient was taken back to the operative room where transferred to the operative table and placed under general anesthesia. Once they were adequately anesthetized and a nonsterile tourniquet was placed on his upper extremity. A surgical team debriefing was performed ensuring all instrumentation was available, the surgical procedure was discussed with possible concerns reviewed. The upper extremity was prepped with chlorhexidine and alcohol and draped in a sterile fashion. A timeout was done identifying correct patient, procedure and extremity everyone in attendance agree with this and verbalized no concerns.The extremity was exsanguinated the tourniquet was inflated to 250 mmHg. A longitudinal skin incision was made via a volar approach of [place] along the FCR tendon sheath. The FCR tendon sheath was opened and the FCR retracted ulnarly, the palmar cutaneous branch of the median nerve was identified and protected throughout the entirety of the case. The radial artery was identified and retracted radially. Blunt dissection was performed to the FPL which was carefully sweeped ulnarly. This brought me to the pronator quadratus which was elevated off of the distal radius via sharp dissection with a 15 blade to allow later repair. The fracture was then identified and a reduction maneuver was performed utilizing a [place] elevator. Acceptable reduction was then obtained and a Acumed 3 hole volar distal radius plate was placed into position and fixated with a K wire distally x2. AP and lateral radiographs were then obtained demonstrating appropriate placement of the plate and acceptable r eduction of the fracture. Using a reduction tenaculum I was able to bring the plate down to bone distally. After drilling distally a cortical screw was used bringing the plate further down to bone, avoiding any liftoff of the plate from the volar cortex that could cause flexor tendon irritation post-operativley. Drilling the near cortex and to but not thru the far cortex a locking screw was then placed in the remaining holes. The previous cortex screw was removed and replaced with a locking screw. Two additional screws were placed into the styloid giving further stability to the radial styloid piece. AP and lateral radius were then done confirming appropriate placement of plate with no evidence of penetration intra-articular or within the DRUJ. I then turned my attention to the proximal screws. I drilled bicortically bringing the plate down to bone with a cortex screw. The remaining 2 holes proximally were drilled bicortically placing the appropriate size cortex in the proximal most hole and a locking screw in the distal shaft hole. AP and lateral radiographs were done confirming appropriate placement of the plate and reduction of the fracture there was latter day of radial height, radial inclination and volar tilt. No evidence of dorsal screw prominence or intra-articular penetration of the DRUJ or radiocarpal joint. Longitudinal skin incision was made in line with the radial border of the ring finger proximal to Fish's cardinal line. Blunt dissection was performed palmar fascia was incised. Transverse carpal ligament was then identified proximally and distally and released including the volar antebrachial fascia. At completion median nerve was explored to ensure no evidence of an injury and adequate release. Wound was copiously irrigated with normal saline. Skin was closed with 4-0 nylon suture. The wound was copiously irrigated with normal saline. Deflated any peripheral bleeding was controlled with bipolar cautery. There was no evidence of DRUJ instability on examination, Negative Aldana's test, No crepitus with range of motion at the radiocarpal joint or DRUJ. The pronator quadratus was closed with interrupted 3-0 Monocryl suture. Subcutaneous tissues were closed with interrupted 4-0 Monocryl suture. The skin was closed with a running 4-0 nylon suture which was reinforced with Dermabond and Steri-Strips. 20 mL of 0.5% Marcaine were injected for postoperative pain control. Was dressed with sterile 4 x 4's and patient was placed in a well-padded volar splint. Sponge counts, instrument counts and needle counts were correct. There was no intraoperative complications patient tolerated procedure well stable to PACU. Postoperative plan: Patient will be switched to a removal brace at first postoperative followup visit and begin range of motion. Patient is encouraged to start vitamin C 500 mg daily for 51 days. Will obtain radiographs at followup of the wrist.
--- NOTE | 2019-10-08 14:34 | RADIOLOGY REPORT (SQ) ---
EXAM DESCRIPTION: NO CHG FLUORO; WRIST RIGHT 2 VIEWS COMPLETED DATE/TIME: 10/08/2019 1:58 pm REASON FOR STUDY: ORIF RIGHT WRIST ASST WITH FLUORO IN OR COMPARISON: 10/01/2019 FLUOROSCOPY TIME: 22 seconds 3 Images saved to PACS LIMITATIONS: None. PROCEDURE: ORIF distal radius. FINDINGS: Images from fluoro document placement of a volar compression plate on the distal radius wi th multiple screws. IMPRESSION: ORIF distal radius. Refer to operative note for further information. COMMENT: PQRS 6045F: Fluoroscopy time of the procedure is documented in the report. TECHNICAL DOCUMENTATION: JOB ID: [id number] [employer]- All Rights Reserved Reading location - IP/workstation name: [email or web address]
--- NOTE | 2019-10-08 14:34 | RADIOLOGY REPORT (SQ) ---
EXAM DESCRIPTION: NO CHG FLUORO; WRIST RIGHT 2 VIEWS COMPLETED DATE/TIME: 10/08/2019 1:58 pm REASON FOR STUDY: ORIF RIGHT WRIST ASST WITH FLUORO IN OR COMPARISON: 10/01/2019 FLUOROSCOPY TIME: 22 seconds 3 Images saved to PACS LIMITATIONS: None. PROCEDURE: ORIF distal radius. FINDINGS: Images from fluoro document placement of a volar compression plate on the distal radius wi th multiple screws. IMPRESSION: ORIF distal radius. Refer to operative note for further information. COMMENT: PQRS 6045F: Fluoroscopy time of the procedure is documented in the report. TECHNICAL DOCUMENTATION: JOB ID: [id number] [employer]- All Rights Reserved Reading location - IP/workstation name: [email or web address]
[2019-10-08] MEDS ORDERED: DEXAMETHASONE SOD PHOS INJ 10 MG/1 ML VIAL ONE (14:45)
[2019-10-08] MEDS ORDERED: PANTOPRAZOLE SODIUM 40 MG TABLET.DR PO ONE ×2 (15:29→16:30)
[2019-10-08 16:38] VITALS: BP 144/65
== END 2019-10-08 16:40 | disposition home or self-care (01) ==
LOC: OROUT 09:52
PROVIDERS: ATTEND Orthopaedic Surgery
DX: S52.571A Other intraarticular fracture of lower end of right radius, initial encounter for closed fracture (principal); W19.XXXA Unspecified fall, initial encounter; G56.01 Carpal tunnel syndrome, right upper limb; Z87.891 Personal history of nicotine dependence; I10 Essential (primary) hypertension; Z88.0 Allergy status to penicillin; Z79.899 Other long term (current) drug therapy; Z85.3 Personal history of malignant neoplasm of breast; E78.5 Hyperlipidemia, unspecified
CPT/HCPCS: 73100; 01830; 64721; 25608; J2795; J2250; J3490 ×4; J1100 ×2; J3010; J0330; J2405; J2704; A9270